=== PATIENT | female | born 1985 | race Caucasian/White ===

== ENCOUNTER 2022-04-24 09:29 | Outpatient (CLI) | payer MEDICAID, SELFPAY ==
--- OUTSIDE RECORDS SUMMARY | 2022-04-24 09:32 | XMS_ITS | Encounter Summary ---
:1985 Author Organization [place] Address [address] [place] [address] Care Team Providers Name Role Phone Andres North MD Primary Care Provider [phone] Encounter Details Date Type Department Care Team Description 03/28/2022 Travel Social History Tobacco Use Types Packs/Day Years Used Date Former Smoker Smokeless Tobacco: Never Used Alcohol Use Standard Drinks/Week Comments No 0 (1 standard drink = 0.6 oz pure alcoho l) Sex Assigned at Date Recorded Not on file COVID-19 Exposure Response Date Recorded In the last 10 days, have you been in contact with No / Unsu re 03/28/2022 11:30 AM CDT someone who was confirmed or suspected to have Coronavirus/COVID-19? documented as of this encounter Plan of Treatment Not on filedocumented as of this encounter Visit Diagnoses Not on filedocumented in this encounter Additional Health Concerns Infection Onset Date Last Indicated Resolved Time Rule Out COVID-19 03/28/2022 03/28/2022 03/28/2022 12: 54 PM CDT documented as of this encounter Care Teams Director Of Business Operations Relationship Specialty Start Date End Date Andres North MD PCP - General Family Practice 08/28/[address], [id number] [place] [address] documented as of this encounter
--- OUTSIDE RECORDS SUMMARY | 2022-04-24 09:32 | XMS_ITS | Encounter Summary ---
:1985 Author Organization [place] Address [address] [place] [address] Care Team Providers Name Role Phone Edwige Hernandez MD Primary Care Provider Encounter Details Date Type Department Care Team Description 04/12/2002 Lottie Arnett [facility] [address] [place] [address] Social History Tobacco Use Types Packs/Day Years Used Date Never Assessed Sex Assigned at Date Recorded Not on file documented as of this encounter Plan of Treatment Not on filedocumented as of this encounter Procedures Procedure Name Priority Date/Time Associated Diagnosis Comme nts ABSTRACT LABCARE REPORT Routine 04/13/2002 ABSTRACT PAP (HIM EXTERNAL RESULT) Routine 01/07/2002 documented in this encounter Results ABSTRACT LABCARE REPORT (04/13/2002) Narrative This result has an attachment that is no t available. [facility] ABSTRACT PAP-NO CHARGE (01/07/2002) [facility] - HIM EXTERNAL RESULT documented in this encounter Visit Diagnoses Not on filedocumented in this encounter Care Teams Comber Tender Relationship Specialty Start Date End Date Edwige Hernandez MD PCP - General 09/19/01 08/27/12 documented as of this encounter
--- OUTSIDE RECORDS SUMMARY | 2022-04-24 09:32 | XMS_ITS | Encounter Summary ---
:1985 Author Organization [place] Address [address] [place] [address] Care Team Providers Name Role Phone Edwige Hernandez MD Primary Care Provider Reason for Visit Reason Comments Physical Encounter Details Date Type Department Care Team Description 01/04/2003 Office Visit [facility] [place], ROUTINE ME DICAL EXAM [facility] [place] Toni Palomares MD (Primary Dx) [address] [address] [place], [place] [phone] (Wo rk) [address] [phone] Social History Tobacco Use Types Packs/Day Years Used Date Never Smoker Alcohol Use Standard Drinks/Week Comments No 0 (1 standard drink = 0.6 oz pure alcoho l) Sex Assigned at Date Recorded Not on file documented as of this encounter Last Filed Vital Signs Vital Sign Reading Time Taken Comments Blood Pressure 94/72 01/04/2003 4:00 PM CDT Pulse 64 01/04/2003 4:00 PM CDT Temperature - - Respiratory Rate 18 01/04/2003 4:00 PM CDT Oxygen Saturation - - Inhaled Oxygen Concentration - - Weight 59.9 kg (132 lb) 01/04/2003 4:00 PM CDT Height 168.9 cm (5' 6.5) 01/04/2003 4:00 PM CDT Body Mass Index 20.99 01/04/2003 4:00 PM CDT Body Mass Index Percentile 44.76 % 01/04/2003 4:00 PM CD T Growth Chart: CDC (Girls, 2-20 Years) documented in this encounter Progress Notes 01/04/2003 4:00 PM CDT pt is a 17 year old female who is seen here to day for physical,also requesting pap and pelvic. last pap was 1 yr ago,no abnormal pap in the past. pt also wants STD check. PAST MED HISTORY - Review of patient's past medical history indicates: ALLERGIC RHINITIS NOS PAST SURGICAL HISTORY-Review of patient's past surgical history indicates: NONSPECIFIC PROCEDURE Comment: ganglion cyst removal rt wrist. REMOVE TONSILS/A DENOIDS,11+ Y/O SOC HISTORY-Social History Marital Status: Single Spouse Name: Years of Education: Number of children: Social History Main Topics Tobacco Use: Never Alcohol Use: No Drug U se: No Sexually Active: Not Currently FAMILY HISTORY-Review of patient's family histo ry indicates: Diabetes Father Comment: type 2 Depressio n Mother Respiratory Brother Comment: asthma MEDS -none REVIEW OF SYSTEMS- GENERAL:negative HEENT-NEGATIVE CARDIO VASCULAR-n egative RESPITORY-negative ABDOMEN-negative GENITO URINARY-negative MUSCULOSKELETAL negative PSYCH ne gative RELOCATION SERVICES SPECIALIST:negative. PHYSICAL EXAMINATION- Blood pressure 94/72, pulse 64, resp. rate 18, height 5' 6.5 (1.689m), [id number] lbs (59.875 kg), last menstrual period 12/19/2002.. GENERAL:healthy, alert and no distress HEENT: pupils equal and reactive to light and accommodation, TMs clear, oropharynx cl ear CVS: regular rate and rhythm with normal S1, S2 ; no murmur, rub or gallops RESP: Normal - CTA w ithout rales, rhonchi, or wheezing. ABD: no organomegaly, bowel sounds normal, soft, non-tender BREAS T :Breasts are symmetric. No dominant, discrete, fixed or suspicious masses are noted. No skinor nipple changes or axillary nodes. Self exam is taught and encouraged.. : Vagina and vulva are andrzej l;scant white discharge is noted. Cervix normal. Adnexa normal in size without masses or tenderness. .pap obtained,no cervical motion tenderness. EXT:Foot and ankle exam is normal. Color and temperature of the feet is normal. Peripheral pulses are palpable.. RELOCATION SERVICES SPECIALIST:Cranial nerves 2-12 intact, motor streng th intact, reflexes normal ASSESSMENT & PLAN : V70.0 ROUTINE MEDICAL EXAM (primary encounter diag nosis) Plan: A THIN LAYER PAP SCREEN, A.M.A. LIPID PANEL, HGB, ALANINE AMINO (ALT) (SGPT), A.M .A. BASIC METABOLIC PANEL, HIV-1/HIV-2, SCREEN, RPR SCREEN W/REFLEX TO TITER, N.GONORRH OEAE, DNA, (GC), CHYLMD TRACH, DNA, AMP PROBE, A WET PREP pt wants to be informed about results RUEL when available,even before mailing as she is [facility]. documented in this encounter Nursing Notes 01/04/2003 4:00 PM CDT >> NEEMA SENA 01/04/2003 4:13 pm needs pap, denies uti or vaginal sx. Non-fasting. Neema Sena RN New to documented in this encounter Plan of Treatment Not on filedocumented as of this encounter Procedures Procedure Name Priority Date/Time Associated Comments Diagnosis HCL WET PREP Routine 01/04/2003 4:36 PM Routine Medical Result s for this CDT Exam procedure are i n the results section. CL AFF Routine 01/04/2003 4:34 PM Routine Medical Result s for this N.GONORRHOEAE, DNA CDT Exam procedure are in AMP PROBE the results section. CL AFF CHLMYD TRACH, Routine 01/04/2003 4:34 PM Routine Medica l Results for this DNA, AMP PROBE CDT Exam procedure are in the results section. HCL HEMOGLOBIN Routine 01/04/2003 4:33 PM Routine Medical Resu lts for this NONLAB CDT Exam procedure are i n the results section. HCL BASIC METABOLIC Routine 01/04/2003 4:33 PM Routine Medical Results for this PANEL CDT Exam procedure are i n the results section. HCL RPR SCREEN Routine 01/04/2003 4:33 PM Routine Medical Resu lts for this W/REFLEX TO TITER CDT Exam procedure are in the results section. HCL HIV 1 & 2 Routine 01/04/2003 4:33 PM Routine Medical Resul ts for this ANTIBODY CDT Exam procedure are i n the results section. HCL ALT Routine 01/04/2003 4:33 PM Routine Medical Result s for this CDT Exam procedure are i n the results section. CL AFF A.M.A. LIPID Routine 01/04/2003 4:33 PM Routine Medical Results for this PANEL CDT Exam procedure are i n the results section. HCL PAP THIN LAYER Routine 01/04/2003 12:00 AM Routine Medical Results for this SCREEN CDT Exam procedure are i n the results section. documented in this encounter Results A WET PREP (01/04/2003 4:36 PM CDT) [facility] Method [place] Signature Specimen Vagina [facility] LAB Wet Prep No yeast seen [place] No Trichomonas seen [place] No clue cells seen CLINIC LAB Report status FINAL [id number] [facility] Specimen Anatomical Collection Method Collection Time Receive d Time (Source) Location / / Volume Laterality 01/04/2003 4:36 PM 3 4:41 CDT PM CDT Toni Wagoner MD LABORATORY Performing Organization Address City/[facility]/ZIP Code Phon e Number [facility] [address] [place], [place] [address] [address] [facility] CHYLMD TRACH, DNA, AMP PROBE (01/04/2003 4:34 PM CDT) Component Value Ref Test Analysis Performed At [facility] Method [place] Signature Specimen Vagina [facility] LABS Chlamydia Negative for C. trachomatis rRNA by hvac maintenance technician mediated amplification. [facility] Trachomatis A negative result by transc ription mediated amplification does not preclude the [place] PCR presence of C. trachomatis infection because results are dependent on proper CAMPUS LABS and adequate collection, absence of inhibitors, and suffici ent rRNA to be detected. Specimen Anatomical Collection Method Collection Time Receive d Time (Source) Location / / Volume Laterality 01/04/2003 4:34 PM 3 4:39 CDT PM CDT Toni Wagoner MD LABORATORY Performing Organization Address City/State/ZIP Code Phon e Number [address] [address] [facility] LABS N.GONORRHOEAE, DNA, (GC) (01/04/2003 4:34 PM CDT) Component Value Ref Test Analysis Performed At [facility] Method Time Signature Specimen Vagina [facility] LABS N Gonorrhea Negative for N. gonorrhoeae rRNA by hvac maintenance technician mediated amplification. [facility] PCR A negative result by transc ription mediated amplification does not preclude the [place] presence of N. gonorrhoeae infection because re sults are dependent on proper CAMPUS LABS and adequate collection, absence of inhibitors, and suffici ent rRNA to be detected. Specimen Anatomical Collection Method Collection Time Receive d Time (Source) Location / / Volume Laterality 01/04/2003 4:34 PM 3 4:39 CDT PM CDT Toni Wagoner MD LABORATORY Performing Organization Address City/[facility]/ZIP Code Phon e Number [address] LABS RPR SCREEN W/REFLEX TO TITER (01/04/2003 4:33 PM CDT) Analysis Performed At Patho logist Time Signature Rapid Plasma Negative NEG [facility] Reagin [facility] LABS Specimen Anatomical Collection Method Collection Time Receive d Time (Source) Location / / Volume Laterality 01/04/2003 4:33 PM 3 4:38 CDT PM CDT Toni Wagoner MD LABORATORY Performing Organization Address City/[facility]/ZIP Code Phon e Number [address] LABS HIV-1/HIV-2, SCREEN (01/04/2003 4:33 PM CDT) Analysis Performed At Patho logist Time Signature HIV 1&2 Negative NEG [facility] Antibody [facility] LABS Specimen Anatomical Collection Method Collection Time Receive d Time (Source) Location / / Volume Laterality 01/04/2003 4:33 PM 3 4:38 CDT PM CDT Toni Wagoner MD LABORATORY Performing Organization Address City/[facility]/ZIP Code Phon e Number [address] LABS A.M.A. BASIC METABOLIC PANEL (01/04/2003 4:33 PM CDT) P athologist Signature Sodium 142 133 - 144 [facility] mmol/L [facility] Potassium 4.2 3.4 - 5.3 [facility] mmol/L [facility] Chloride 104 96 - 110 [facility] mmol/L [facility] Carbon Dioxide 27 20 - 32 [facility] mmol/L [facility] Anion Gap 12 6 - 17 [facility] mmol/L [facility] Glucose 87 60 - 115 [facility] mg/dL [facility] LAB Urea Nitrogen 10 5 - 24 [place] mg/dL [facility] Creatinine 0.9 0.6 - 1.2 [place] mg/dL [facility] Calcium 10.0 8.7 - 10.8 [place] mg/dL [facility] Specimen Anatomical Collection Method Collection Time Receive d Time (Source) Location / / Volume Laterality 01/04/2003 4:33 PM 3 4:38 CDT PM CDT Toni Wagoner MD LABORATORY Performing Organization Address City/State/ZIP Code Phon e Number [facility] [address] [place] [address] [facility] ALANINE AMINO (ALT) (SGPT) (01/04/2003 4:33 PM CDT) P athologist Signature ALT 19 0 - 35 U/L [facility] Specimen Anatomical Collection Method Collection Time Receive d Time (Source) Location / / Volume Laterality 01/04/2003 4:33 PM 3 4:38 CDT PM CDT Toni Wagoner MD LABORATORY Performing Organization Address City/[facility]/ZIP Code Phon e Number [facility] [address], [place] [address] [facility] HGB (01/04/2003 4:33 PM CDT) P athologist Signature Hemoglobin 14.9 11.7 - 15.7 [facility] g/dL [facility] LAB Specimen Anatomical Collection Method Collection Time Receive d Time (Source) Location / / Volume Laterality 01/04/2003 4:33 PM 3 4:38 CDT PM CDT Toni Wagoner MD LABORATORY Performing Organization Address City/State/ZIP Code Phon e Number [facility] [address] [place], [place] [address] [address] [facility] A.M.A. LIPID PANEL (01/04/2003 4:33 PM CDT) P athologist Signature Cholesterol 177 <200 mg/dL [facility] Comment: Cholesterol Reference Range: <200 ??The NCEP recommends further ? evaluation of: ? 1. ??Patients with cholesterol ? greater than 200 mg/dL ? if additional risk facto rs ? are present. ? 2. ??All patients with a ? cholesterol greater than ? 240 mg/dL. Triglycerides 86 <150 mg/dL [facility] HDL Cholesterol 49 >40 mg/dL [facility] LDL Cholesterol Calculated 110 <130 mg/dL [facility] VLDL-Cholesterol 17 0 - 30 mg/dL [facility] Cholesterol/HDL Ratio 4 0 - 5 [facility] Specimen Anatomical Collection Method Collection Time Receive d Time (Source) Location / / Volume Laterality 01/04/2003 4:33 PM 3 4:38 CDT PM CDT Toni Wagoner MD LABORATORY Performing Organization Address City/State/ZIP Code Phon e Number [facility] [address] [place] [address] [facility] A THIN LAYER PAP SCREEN (01/04/2003 12:00 AM CDT) Component Value Ref Test Analysis Performed At Patholo gist Range Method Time Signature Copath Report Patient Name: VINCENZO AGUILA MR#: [id number] Specimen #: [id number] Collected: 01/04/03 Received: 01/10/03 Reported: 01/13/03 14:59 Ordering Phy(s): ISABEL WAGONER SPECIMEN/STAIN PROCESS: Pap thin layer prep screening ? Pap-Cyto x 1, Reflex HPV x 1 SOURCE: Cervical, endocervical ---- Pap thin layer prep screening SPECIMEN ADEQUACY: Satisfactory for evaluation. -Transitional zone component present. CYTOLOGIC INTERPRETATION: Negative for Intraepithelial Lesion or Malignancy Electronically signed out by: ELIDA Gaston (ASCP) Processed and screened at [facility] CLINICAL HISTORY: LMP: 12/19/02 Specimen (Source) Anatomical Collection Method Collection Time Re ceived Time Location / / Volume Laterality 01/04/2003 01/10/2003 2:57 PM CDT Toni Wagoner MD LABORATORY Performing Organization Address City/State/ZIP Code Phon e Number [place] documented in this encounter Visit Diagnoses Diagnosis Routine general medical examination at a health care facility - Primary documented in this encounter Care Teams Chief Quality Officer Relationship Specialty Start Date End Date Edwige Hernandez MD PCP - General 09/19/01 08/27/12 documented as of this encounter
--- OUTSIDE RECORDS SUMMARY | 2022-04-24 09:32 | XMS_ITS | Encounter Summary ---
:1985 Author Organization [place] Address [address] [place] [address] Care Team Providers Name Role Phone Edwige Hernandez MD Primary Care Provider Reason for Visit Reason Comments Urgent Care Urinary Problem for 24 hours urinary pain, b urning, urgency, low back pain, pt took AZO this morning Encounter Details Date Type Department Care Team Description 03/15/2011 Office Visit [facility] Christopher Paredes UTI (urina ry tract Urgent Care [place] Cye, DO infection) (Primary Dx) [address] [address] [phone] Social History Tobacco Use Types Packs/Day Years Used Date Former Smoker Smokeless Tobacco: Never Used Alcohol Use Standard Drinks/Week Comments No 0 (1 standard drink = 0.6 oz pure alcoho l) Sex Assigned at Date Recorded Not on file documented as of this encounter Last Filed Vital Signs Vital Sign Reading Time Taken Comments Blood Pressure 110/68 03/15/2011 3:35 PM CDT Pulse - - Temperature 36.9 ??C (98.5 ??F) 03/15/2011 3:35 PM CDT Respiratory Rate 16 03/15/2011 3:35 PM CDT Oxygen Saturation - - Inhaled Oxygen Concentration - - Weight 69.4 kg (153 lb) 03/15/2011 3:35 PM CDT Height - - Body Mass Index 24.88 01/16/2006 3:00 PM CDT documented in this encounter Progress Notes Christopher Paredes - 03/15/2011 4:56 PM CDT SUBJECTIVE: Jacque Sierra is a 25 year old female who presents today for a possible UTI. Symptoms of dysuria and frequency have been going on for 2day(s). Hematuria no. still presentand moderate. There is no history of fever, chills, nausea or vomiting. This patient does have a history of urinary tract infections. Patient denies long duration and flank pain Past Medical History Diagnosis Date ??? Allergic rhinitis, cause unspecified Allergies Allergen Reactions ??? Penicillins ??? Quinolones Levaquin - hives ??? Sulfa Drugs GI Disturbance ??? Bactrim History Substance Use Topics ??? Smoking status: Former Smoker ??? Smokeless tobacco: Never Used ??? Alcohol Use: No ROS: CONSTITUTIONAL:NEGATIVE for fever, chills, change in weight OBJECTIVE: BP 110/68 Temp(Src) 98.5 ??F (36.9 ??C) (Oral) Resp 16 Wt 153 lb (69.4 kg) LMP 03/01/2011 No Flank/abd pain 1. UTI (urinary tract infection) (599.0C) URINE CULTURE, cephALEXin (KEFLEX) 500 MG capsule, fluconazole (DIFLUCAN) 150 MG tablet Drink plenty of fluids. Prevention and treatment of UTI's discussed.Signs and symptoms of pyelonephritis mentioned. Follow up with primary care physician if not improving' documented in this encounter Nursing Notes 03/15/2011 3:00 PM CDT >> ANNE-MARIE DENNY Fri Mar 15, 2011 3:37 PM Patient presents with: Urgent Care Urinary Problem - for 24 hours urinary pain, burning, urgency, low back pain, pt took AZO this morning initial BP 110/68 Temp(Src) 98.5 ??F (36.9 ??C) (Oral) Resp 16 Wt 153 lb (69.4 kg) LMP 03/01/2011 Estimated Body mass index is 24.88 kg/(m^2) as calculated from the following: Height as of 06: 5' 5.75(1.67 m). Weight as of this encounter: 153 lb(69.4 kg).. bp completed using cuff size regular Anne-Marie Denny MA documented in this encounter Plan of Treatment Not on filedocumented as of this encounter Procedures Procedure Name Priority Date/Time Associated Comments Diagnosis URINE CULTURE Routine 03/15/2011 4:05 PM UTI (urinary tract Re sults for this CDT infection) procedure are i n the results section. URINE MICROSCOPIC Routine 03/15/2011 4:04 PM Resu lts for this EXAM CDT procedure are i n the results section. documented in this encounter Results URINE CULTURE (03/15/2011 4:05 PM CDT) [facility] Method Time Signature Specimen Midstream Urine [facility] Description [facility] Culture Micro >100,000 [facility] colonies/mL [facility] LAB coli Micro Report FINAL [facility] Status 03/16/2011 [facility] Specimen Anatomical Collection Method Collection Time Receive d Time (Source) Location / / Volume Laterality 03/15/2011 4:05 PM 1 4:10 CDT PM CDT Organism Antibiotic Method Susceptibility >100,000 colonies/ml Ampicillin <=2 Suscept ible ug/mL escherichia coli (yanick) >100,000 colonies/ml Cefazolin <=4 Suscept ible ug/mL escherichia coli (yanick) >100,000 colonies/ml Cefoxitin <=4 Suscept ible ug/mL escherichia coli (yanick) >100,000 colonies/ml Ceftriaxone <=1 Suscept ible ug/mL escherichia coli (yanick) >100,000 colonies/ml Ciprofloxacin <=0.25 Susc eptible ug/mL escherichia coli (yanick) >100,000 colonies/ml Gentamicin <=1 Suscept ible ug/mL escherichia coli (yanick) >100,000 colonies/ml Levofloxacin <=0.12 Susc eptible ug/mL escherichia coli (yanick) >100,000 colonies/ml Nitrofurantoin <=16 Suscep tible ug/mL escherichia coli (yanick) >100,000 colonies/ml Tobramycin <=1 Suscept ible ug/mL escherichia coli (yanick) >100,000 colonies/ml Trimethoprim/Sulfamethoxazol <=1/19 Susceptible ug/mL escherichia coli (yanick) e >100,000 colonies/ml Ampicillin/Sulbactam <=2 [place] sceptible ug/mL escherichia coli (yanick) Christopher Paredes DO LAB - MICRO GENERAL ORDERABL ES Performing Organization Address City/[facility]/ZIP Code Phon e Number [facility] [address] [address] [facility] LAB (ABNORMAL) Microscopic exam urine (03/15/2011 4:04 PM CDT) P athologist Signature WBC Urine 5-10 (A) 0 - 2 /HPF [facility] RBC Urine O - 2 0 - 2 /HPF [facility] Specimen Anatomical Collection Method Collection Time Receive d Time (Source) Location / / Volume Laterality 03/15/2011 4:04 PM 1 4:09 CDT PM CDT Christopher Harmon Reggie REGAN LAB - URINE ORDERABLES Performing Organization Address [facility]/ZIP Code Phon e Number [facility] [address] [place] [address] [facility] documented in this encounter Visit Diagnoses Diagnosis UTI (urinary tract infection) - Primary Urinary tract infection, site not specif ied documented in this encounter Care Teams Ice Guard Inspector Relationship Specialty Start Date End Date Edwige Hernandez MD PCP - General 09/19/01 08/27/12 documented as of this encounter
--- OUTSIDE RECORDS SUMMARY | 2022-04-24 09:32 | XMS_ITS | Encounter Summary ---
:1985 Author Organization [facility] Address [address] [place] [id number] Care Team Providers Name Role Phone Edwige Hernandez MD Primary Care Provider Reason for Visit Reason Comments Pharyngitis UTI Encounter Details Date Type Department Care Team Description 02/23/2003 Office Visit [facility] Haleigh Najera RY FREQUENCY (Primary Dx); [facility] [place] MD Paula SORE THROAT [place] [address] [place] [phone] [id number] Social History Tobacco Use Types Packs/Day Years Used Date Never Smoker Alcohol Use Standard Drinks/Week Comments No 0 (1 standard drink = 0.6 oz pure alcoho l) Sex Assigned at Date Recorded Not on file documented as of this encounter Last Filed Vital Signs Vital Sign Reading Time Taken Comments Blood Pressure - - Pulse - - Temperature 36.4 ??C (97.6 ??F) 02/23/2003 3:45 PM CDT Respiratory Rate - - Oxygen Saturation - - Inhaled Oxygen Concentration - - Weight 61.7 kg (136 lb) 02/23/2003 3:45 PM CDT Height - - Body Mass Index 21.62 01/04/2003 4:00 PM CDT Body Mass Index Percentile 52.34 % 02/23/2003 3:45 PM CD T Growth Chart: CDC (Girls, 2-20 Years) documented in this encounter Progress Notes 02/23/2003 3:45 PM CDT DUNIA Santillan is a 17 year old female who presents with symptoms as discribed. There is no f ever, no known exposure, and no history of UTI. Alert, well-hydrated, in no apparent distress. HEENT : Sclera clear, no lid edema or erythema. TM's clear, with normal landmarks, and light reflection. Nasal mucosa normal, no discharge. Mouth free of erythema or lesions. Tonsils normal in size andslig htly erythematous. No facial tenderness or edema. Neck: Supple, no adenopathy. Lungs: Clear to ausc ultation. Abdomen: Soft, non-tender, no masses or organomegaly. Normal bowel sounds. Skin: pink an d slightly edematous about 1 cm area of distal finger near the nail. No fluctuance. : Vaginal openi ng and vulva are normal; no discharge is noted. Assessment: Dysuria Pharyngitis PLAN: Given neg ative labs advised symptomatic treatment. Push fluids. RTC if symptoms not improved in 1 week, sooner if symptoms worsen. documented in this encounter Nursing Notes 02/23/2003 3:45 PM CDT >> ERWIN CROSS 02/23/2003 4:27 pm negative strep.Kimberlyn Vale RN >> ELZBIETA URIAS 02/23/2003 3:57 pm Patient here with very sore throat, swollen right index finger, no known injury, and also has burning sensation after urination all for the last two-three days. Elzbieta Urias ROUSTABOUT HAND documented in this encounter Plan of Treatment Not on filedocumented as of this encounter Procedures Procedure Name Priority Date/Time Associated Diagnosis Comme nts HCL BETA STREP Routine 02/23/2003 4:58 PM SORE THROAT Results for this CONFIRM CDT procedure are i n the results section. HCL STREP GROUP A Routine 02/23/2003 4:58 PM SORE THROAT Resu lts for this AG (RAPID) CDT procedure are i n the results section. HCL WET PREP Routine 02/23/2003 4:58 PM Urinary Frequency Resu lts for this CDT procedure are i n the results section. HCL UA MICRO IF Routine 02/23/2003 4:00 PM Urinary Frequency R esults for this POSITIVE CDT procedure are i n the results section. CL AFF MICRO Routine 02/23/2003 4:00 PM Urinary Frequency Resu lts for this EXAM-URINE CDT procedure are i n the results section. documented in this encounter Results BETA STREP CONFIRM (02/23/2003 4:58 PM CDT) Component Value Ref Test Analysis Performed At [facility] gist Range Method Time Signature Specimen Throat [facility] Culture Micro No Beta [place] Streptococcus [place] isolated CLINIC LAB Report status [facility] Specimen Anatomical Collection Method Collection Time Receive d Time (Source) Location / / Volume Laterality 02/23/2003 4:58 PM 3 5:03 CDT PM CDT Haleigh Najera MD LABORATORY Performing Organization Address City/State/ZIP Code Phon e Number [facility] [address] [place] [address] [facility] A WET PREP (02/23/2003 4:58 PM CDT) [facility] Method Time Signature Specimen Vagina [facility] Wet Prep Clue cells seen [place] No yeast seen [facility] No Trichomonas seen CLINIC LAB Report status [facility] Specimen Anatomical Collection Method Collection Time Receive d Time (Source) Location / / Volume Laterality 02/23/2003 4:58 PM 3 5:03 CDT PM CDT Haleigh Najera MD LABORATORY Performing Organization Address City/[facility]/ZIP Code Phon e Number [facility] [address], [place] [address] [facility] STREP GROUP A AG (RAPID) (02/23/2003 4:58 PM CDT) Component Value Ref Test Analysis Performed At [facility] Range Method Time Signature Specimen Throat [facility] Rapid Strep A NEGATIVE: No Group A strepto coccal antigen detected by immunoassay, await [place] Screen culture report. [facility] Report status [facility] Specimen Anatomical Collection Method Collection Time Receive d Time (Source) Location / / Volume Laterality 02/23/2003 4:58 PM 3 5:03 CDT PM CDT Haleigh Najera MD LABORATORY Performing Organization Address City/State/ZIP Code Phon e Number [facility] [address] [place] [address] [facility] (ABNORMAL) MICRO EXAM-URINE (02/23/2003 4:00 PM CDT) P athologist Signature WBC Urine 0-2 0 - 2 /HPF [facility] RBC Urine 0-2 0 - 2 /HPF [facility] Amorphous Few (A) NEG /HPF [place] Phosphates [facility] Specimen Anatomical Collection Method Collection Time Receive d Time (Source) Location / / Volume Laterality 02/23/2003 4:00 PM 3 4:05 CDT PM CDT Haleigh Najera MD LABORATORY Performing Organization Address City/State/[facility] Code Phon e Number [facility] [address] [place] [phone] [facility] (ABNORMAL) UA MICRO IF POSITIVE (02/23/2003 4:00 PM CDT) Patholo gist Method Time Signature Color Urine Yellow [facility] Appearance Urine Clear [facility] Glucose Urine Negative NEG mg/dL [facility] Bilirubin Urine Negative NEG [facility] Ketones Urine Negative NEG mg/dL [facility] Specific [place] 1.015 1.001 - [place] Urine 1.035 [facility] Blood Urine Trace (A) NEG [facility] pH Urine 7.5 (H) 5.0 - 7.0 [place] pH [facility] Protein Albumin Negative NEG mg/dL [place] Urine [facility] Urobilinogen 0.2 0.2 - 1.0 [place] Urine EU/dL [facility] Nitrite Urine Negative NEG [facility] Leukocyte Trace (A) NEG [place] Esterase Urine [facility] Source Midstream [place] Urine [facility] Specimen Anatomical Collection Method Collection Time Receive d Time (Source) Location / / Volume Laterality 02/23/2003 4:00 PM 3 4:05 CDT PM CDT Haleigh Najera MD LABORATORY Performing Organization Address City/State/ZIP Code Phon e Number [facility] [address] [place] [address] [facility] documented in this encounter Visit Diagnoses Diagnosis Urinary frequency - Primary SORE THROAT Streptococcal sore throat documented in this encounter Care Teams Antique Repairer Relationship Specialty Start Date End Date Edwige Hernandez MD PCP - General 09/19/01 08/27/12 documented as of this encounter
--- OUTSIDE RECORDS SUMMARY | 2022-04-24 09:32 | XMS_ITS | Encounter Summary ---
:1985 Author Organization [facility] Address [facility] [address] Care Team Providers Name Role Phone Edwige Hernandez MD Primary Care Provider Reason for Visit Reason Onset Date Comments Erroneous encounter-disregard 04/08/2006 Encounter Details Date Type Department Care Team Description 04/08/2006 Telephone [facility] Edwige Hernanedz [facility] encounter-disregard [address] [facility] [address] [place], [place] [address] [facility] [phone] [facility] [address] [place], [place] [id number] Social History Tobacco Use Types Packs/Day Years Used Date Never Smoker Alcohol Use Standard Drinks/Week Comments No 0 (1 standard drink = 0.6 oz pure alcoho l) Sex Assigned at Date Recorded Not on file documented as of this encounter Plan of Treatment Not on filedocumented as of this encounter Visit Diagnoses Not on filedocumented in this encounter Care Teams Buggy Runner Relationship Specialty Start Date End Date Edwige Hernandez MD PCP - General 09/19/01 08/27/12 documented as of this encounter
--- OUTSIDE RECORDS SUMMARY | 2022-04-24 09:32 | XMS_ITS | Encounter Summary ---
:1985 Author Organization [facility] Address [address] [facility] [place] [address] Care Team Providers Name Role Phone Edwige Hernandez MD Primary Care Provider Reason for Visit Reason Onset Date Comments Medication Request 07/07/2006 muscle relaxer Encounter Details Date Type Department Care Team Description 07/07/2006 Telephone [facility] [place] dication Request Urgent Care Dino FOX (muscle relaxer) [address] SERVICE [phone] [facility] [facility] [phone] [address] [place], [place] [address] (Wo rk) Social History Tobacco Use Types Packs/Day Years Used Date Never Smoker Alcohol Use Standard Drinks/Week Comments No 0 (1 standard drink = 0.6 oz pure alcoho l) Sex Assigned at Date Recorded Not on file documented as of this encounter Miscellaneous Notes Telephone Encounter - Yesy Markham - 07/07/2006 8:02 PM CST Pt stopped into clinic to request the muscle relaxeprescription that Dr Alvarado said said she could have if she developed muscle spasms. Says her right neck, rt back, rt arm and rt leg are all stiff. Ok per Meliza Reed to call in for # [address] Alvarado didn't say how many to call in for her. I called in Flexeril 10 mg 1 po tid as needed # 21 tabs with no refills. Also advised pt to follow upwith her PCP. Lior Markham LPN [employer] SALES ASSISTANT documented in this encounter Plan of Treatment Not on filedocumented as of this encounter Visit Diagnoses Not on filedocumented in this encounter Care Teams Dairy Processing Supervisor Relationship Specialty Start Date End Date Edwige Hernandez MD PCP - General 09/19/01 08/27/12 documented as of this encounter
--- OUTSIDE RECORDS SUMMARY | 2022-04-24 09:32 | XMS_ITS | Encounter Summary ---
:1985 Author Organization [facility] Address [address] [place] [id number] Care Team Providers Name Role Phone Andres North MD Primary Care Provider [phone] Reason for Visit Reason Comments Shortness of Breath Encounter Details Date Type Department Care Team Description [facility] with [facility] Emergency Dep t [facility] exacerbation, [address] [place] unspecified whether [place] [id number] persistent [id number] [place], [place] [phone] (Wo rk) Social History Tobacco Use Types [...] have Coronavirus/COVID-19? documented as of this encounter Last Filed Vital Signs Vital Sign Reading Time Taken Comments Blood Pressure 164/101 03/28/2022 4:30 PM CDT Pulse 105 03/28/2022 4:30 PM CDT Temperature 36.4 ??C (97.6 ??F) 03/28/2022 4:26 PM CDT Respiratory Rate 26 03/28/2022 11:32 AM CDT Oxygen Saturation 92% 03/28/2022 4:45 PM CDT Inhaled Oxygen Concentration - - Weight - - Height - - Body Mass Index - - documented in this encounter Discharge Instructions Discharge Mercedes Garcia, MD - 03/28/2022 4:42 PM CDT *You may resume diet and activities as tolerated. *Take medications as prescribed. Prednisone as prescribed previously and duoneb or your inhaler as directed. Continue your current medications *Follow-up with your primary doctor in the next 1-2 days for a recheck. *Return if you develop difficulty in breathing, require your inhaler/nebulizer more frequently than every four hours, faint or feel like you will faint or become worse in any way. Discharge Instructions Asthma Asthma is a condition causing narrowing and inflammation of the airways that can make it hard to breathe. Asthma can also cause cough, wheezing, noisy breathing and tightness in the chest. Asthma can be brought on or ???triggered?? by many things, including dust, mold, pollen, cigarette smoke, exercise, stress and infections, like the common cold. Return to the Emergency Department if: Your breathing gets worse. You need to use your inhaler more often than every 4 hours, or can???t get relief from your inhaler. You are very weak, or feel much more ill. You develop new symptoms, such as chest pain. You cough up blood. You are vomiting enough that you can???t keep fluids or your medicine down. What can I do to help myself? Fill any prescriptions the doctor gave you and take them right away--especially antibiotics. Be sureto finish the whole antibiotic prescription. You may be given a prescription for an inhaler, which can help loosen tight air passages. Use this as needed, but not more often than directed. Inhalers work much better when used with a spacer. You may be given a prescription for a steroid to reduce inflammation. Used long- term, these can havemany serious side effects, but for short courses these do not happen. You may notice restlessness orincreased appetite. You may use non-prescription cough or cold medicines. Cough medicines may help, but don???t make thecough go away completely. Avoid smoke, because this can make your symptoms worse. If you smoke, this may be a good time to quit! Consider using nicotine lozenges, gum, or patches to reduce cravings. If you have a fever, Tylenol?? (acetaminophen), Motrin?? (ibuprofen), or Advil?? (ibuprofen), may help bring fever down and may help you feel more comfortable. Be sure to read and follow the package directions, and ask your doctor if you have questions. Be sure to get your flu shot each year. The pneumonia shot can help prevent pneumonia. It is important that you follow up with your regular doctor, to be sure that you are improving from this spell (an acute asthma exacerbation), and also to do what you can to keep from having trouble again. Sometimes you need long-term medicines to keep your asthma under control. If you were given a prescription for medicine here today, be sure to read all of the information (including the package insert) that comes with your prescription. This will include important information about the medicine, its side effects, and any warnings that you need to know about. The pharmacist who fills the prescription can provide more information and answer questions you may have about the medicine. If you have questions or concerns that the pharmacist cannot address, please call or return to the Emergency Department. Opioid Medication Information Pain medications are among the most commonly prescribed medicines, so we are including this information for all our patients. If you did not receive pain medication or get a prescription for pain medicine, you can ignore it. You may have been given a prescription for an opioid (narcotic) pain medicine and/or have received apain medicine while here in the Emergency Department. These medicines can make you drowsy or impaired. You must not drive, operate dangerous equipment, or engage in any other dangerous activities whiletaking these medications. If you drive while taking these medications, you could be arrested for DUI, or driving under the influence. Do not drink any alcohol while you are taking these medications. Opioid pain medications can cause addiction. If you have a history of chemical dependency of any type, you are at a higher risk of becoming addicted to pain medications. Only take these prescribed medications to treat your pain when all other options have been tried. Take it for as short a time and asfew doses as possible. Store your pain pills in a secure place, as they are frequently stolen and provide a dangerous opportunity for children or visitors in your house to start abusing these powerful medications. We will not replace any lost or stolen medicine. As soon as your pain is better, you should flush all your remaining medication. Many prescription pain medications contain Tylenol?? (acetaminophen), including Vicodin??, Tylenol #3??, [place]??, Lortab??, and Percocet??. You should not take any extra pills of Tylenol?? if you are using these prescription medications or you can get very sick. Do not ever take more than 3000 mg of acetaminophen in any 24 hour period. All opioids tend to cause constipation. Drink plenty of water and eat foods that have a lot of fiber, such as fruits, vegetables, prune juice, apple juice and high fiber cereal. Take a laxative if you don???t move your bowels at least every other day. Miralax??, Milk of Magnesia, Colace??, or Senna?? can be used to keep you regular. Remember that you can always come back to the Emergency Department if you are not able to see your regular doctor in the amount of time listed above, if you get any new symptoms, or if there is anything that worries you. documented in this encounter Medications at Time of Discharge Medication Sig Dispensed Refills Start Date End Date ipratropium - albuterol Take 1 vial (3 mLs) by 90 mL 0 03/28/2022 0.5 mg/2.5 mg/3 mL nebulization every 6 (DUONEB) 0.5-2.5 (3) hours as needed for MG/3ML neb solution shortness of breath / dyspnea or wheezing documented as of this encounter ED Notes aLkia Sparks RN - 03/28/2022 5:01 PM CDT AVS reviewed. Deena Rose - 03/28/2022 4:28 PM CDT Patient ambulated to the rest room and when returned was notably short of breath. Harpal Hewitt RN - 03/28/2022 12:48 PM CDT Pt up to restroom, ambulated on own, felt light headed. Worsening SOB with ambulation. Harpal Hewitt RN - 03/28/2022 12:38 PM CDT Pt still feels bad after neb and medications. made aware. Amber Lucia RN - 03/28/2022 11:35 AM CDT Bed: ED02 Expected date: Expected time: Means of arrival: Comments: Triage Amber Lucia RN - 03/28/2022 11:33 AM CDT Pt presents to ED with severe SOB. States she has used 4 nebulizer in the last 4 hours and received one 1 UC prior to coming to ED. Pt having difficulty completing sentences due to SOB. Also had 2 nearsyncopal episodes. Mercedes Foster MD - 03/28/2022 11:30 AM CDT History Chief Complaint: Shortness of Breath The history is provided by the patient. Jacque Sierra is a 36 year old female with history of exercise-induced asthma who presents with shortness of breath. She first developed a cough 2 days ago, and had episode of vomiting yesterday. Then last night, she became short of breast last. She tried using a nebulizer 4 times throughout the night with no relief. She went to urgent car this morning where she received another nebulizer andwas prescribed a steroid. She took the first dose of the steroid which was 5 mg per the package. Hershortness of breath feels improved at bedside. Recent sick contacts include her son who has an ear infection. She was tested for Covid-19 yesterday and it came back negative. She does not have a history of blood clots or cancer. She denies recent travels, surgeries, or use of oral contraceptives. She has never been hospitalized for her asthma. She recently quit smoking 2 weeks ago. She denies diarrhea or fever. Review of Systems Constitutional: Negative for fever. Respiratory: Positive for cough and shortness of breath. Gastrointestinal: Positive for vomiting. Negative for diarrhea. Allergies: Bactrim Penicillins Quinolones Sulfa Drugs Medications: Prednisone Past Medical History: Exercise induced asthma HSV infection Chronic UTI Past Surgical History: Tonsillectomy/adenoidectomy Tympanostomy R wrist ganglion cyst removal Family History: Father - Type 2 DM Mother - depression Brother - asthma Mother - asthma Social History: The patient presents to the ED alone via private vehicle PCP: Andres North Hx of alcohol use and tobacco use (former smoker) Physical Exam Patient Vitals for the past 24 hrs: BP Temp Temp src Pulse Resp SpO2 03/28/22 1645 -- -- -- -- -- 92 % 03/28/22 1630 (!) 164/101 -- -- 105 -- 95 % 03/28/22 1626 -- 97.6 ??F (36.4 ??C) Oral -- -- -- 03/28/22 1618 (!) 163/112 -- -- 113 -- 95 % 03/28/22 1445 -- -- -- -- -- 93 % 03/28/22 1430 -- -- -- -- -- 95 % 03/28/22 1415 (!) 164/103 -- -- 107 -- 95 % 03/28/22 1400 -- -- -- -- -- 96 % 03/28/22 1345 (!) 151/95 -- -- 106 -- 95 % 03/28/22 1330 (!) 147/105 -- -- 104 -- 94 % 03/28/22 1215 -- -- -- -- -- 94 % 03/28/22 1145 (!) 184/110 -- -- -- -- 95 % 03/28/22 1132 (!) 179/114 -- -- (!) 126 26 93 % Physical Exam General: Well-nourished, very short of breath, speaking in 2-3 word sentences eyes: PERRL, conjunctivae pink no scleral icterus or conjunctival injection ENT: Moist mucus membranes, posterior oropharynx clear without erythema or exudates Respiratory: Diffuse wheezing with prolonged and expiratory phase and diminished air movement.+ Retractions. CV: Tachycardic rate and regular rhythm, no murmurs/rubs/gallops GI: Abdomen soft and non-distended. Normoactive BS. No tenderness, guarding or rebound Skin: Warm, dry. No rashes or petechiae Musculoskeletal: No peripheral edema or calf tenderness Neuro: Alert and oriented to person/place/time Psychiatric: Normal affect Emergency Department Course ECG: ECG taken at 1138, ECG read at 1142 Sinus tachycardia Nonspecific T wave abnormality Abnormal ECG Rate 1116 bpm. MS interval 118 ms. QRS duration 80 ms. QT/QTc 330/458 ms. P-R-T axes 85 52 1. Imaging: Chest XR, PA & LAT Final Result IMPRESSION: No infiltrate, pleural effusion or pneumothorax. The cardiac and mediastinal silhouettes are normal. MATI QUIÑONEZ MD Report per radiology Laboratory: Labs Ordered and Resulted from Time of ED Arrival to Time of ED Departure BASIC METABOLIC PANEL - Abnormal Result Value Creatinine 0.74 Sodium 139 Potassium 4.3 Urea Nitrogen 4.9 (*) Chloride 103 Carbon Dioxide (CO2) 24 Anion Gap 12 Glucose 201 (*) GFR Estimate >90 Calcium 9.6 BLOOD GAS VENOUS WITH OXYHEMOGLOBIN - Abnormal pH Venous 7.40 pCO2 Venous 43 pO2 Venous 44 Bicarbonate Venous 27 FIO2 0 Oxyhemoglobin Venous 78 (*) Base Excess/Deficit (+/-) 1.4 CBC WITH PLATELETS AND DIFFERENTIAL - Abnormal WBC Count 5.2 RBC Count 4.16 Hemoglobin 13.3 Hematocrit 41.3 MCV 99 MCH 32.0 MCHC 32.2 RDW 12.6 Platelet Count 216 % Neutrophils 74 % Lymphocytes 13 % Monocytes 6 % Eosinophils 7 % Basophils 0 % Immature Granulocytes 0 NRBCs per 100 WBC 0 Absolute Neutrophils 3.8 Absolute Lymphocytes 0.7 (*) Absolute Monocytes 0.3 Absolute Eosinophils 0.4 Absolute Basophils 0.0 Absolute Immature Granulocytes 0.0 Absolute NRBCs 0.0 D DIMER QUANTITATIVE - Normal D-Dimer Quantitative 0.35 TROPONIN T, HIGH SENSITIVITY - Normal Troponin T, High Sensitivity <6 NT PROBNP INPATIENT - Normal N terminal Pro BNP Inpatient 130 HCG QUALITATIVE - Normal hCG Serum Qualitative Negative INFLUENZA A/B & SARS-COV2 PCR MULTIPLEX - Normal Influenza A PCR Negative Influenza B PCR Negative RSV PCR Negative SARS CoV2 PCR Negative Emergency Department Course: Reviewed: I reviewed nursing notes, vitals and past medical history Assessments: 1252 I obtained history and examined the patient as noted above. 1241 I rechecked the patient and updated. 1635 I rechecked the patient and explained findings. I discussed plan for discharge home. Interventions: 1155 Duoneb 3 ml INH 1156 NS 500 ml IV 1156 Solu-medrol 125 mg IV 1158 Magnesium sulfate 2 g IV Disposition: The patient was discharged to home. Impression & Plan Medical Decision Making: Jacque Sierra is a 36 year old female with a history of mild asthma who comes today with URIsymptoms and severe wheezing and asthma exacerbation. COVID was negative. Chest x-ray is clear. D-dimer is negative and I do not believe this represents a pulmonary embolism. I suspect this is likely some other viral illness prompting her bronchospasm. She received only a 5 mg dose of prednisone priorto arrival. She was treated with parenteral steroids, magnesium, IV fluids and an hour-long DuoNeb. She improved but had persistent wheezing. I recommended that we admit her to the hospital. She was very adamant that she did not wish to be admitted to the hospital. She thus stayed for 4 hours and we were able to reassess her and she gradually improved. On reassessment at 4-hour wesley, she had no wheezing on examination she felt significantly improved. She still reported some dyspnea when walking to the bathroom but she continues to want us to be discharged. She understands the risk versus benefits of leaving and she has capacity to make this decision. She agreed to return if her symptoms worsen. She was called by the original clinician and told that the prescription for the prednisone should have been for 60 mg and they called her a new prescription in for this. She should take this through the completion. I gave her a AeroChamber as she did not have this at home. I gave her a refill on her nebulizer solution with DuoNebs. She reports that she has multiple albuterol inhalers at home already. Again she is asked to have a low threshold to return if worsening. At this time, with reasonable clinical confidence, I do believe she safe for discharge home. Diagnosis: ICD-10-CM 1. Severe asthma with exacerbation, unspecified whether persistent J45.901 Discharge Medications: Discharge Medication List as of 03/28/2022 4:47 PM START taking these medications Details ipratropium - albuterol 0.5 mg/2.5 mg/3 mL (DUONEB) 0.5-2.5 (3) MG/3ML neb solution Take 1 vial (3 mLs) by nebulization every 6 hours as needed for shortness of breath / dyspnea or wheezing, Disp-90 mL, R-0, E-Prescribe Scribe Disclosure: I, Gerry Mahajan, am serving as a scribe at 12:02 PM on 03/28/2022 to document services personally performed by Mercedes Foster MD based on my observations and the provider's statements to me. Mercedes Foster MD 03/28/221843 Mercedes Foster MD 03/28/221844 documented in this encounter Plan of Treatment Not on filedocumented as of this encounter Procedures Procedure Name Priority Date/Time Associated Comments Diagnosis XR CHEST 2 VIEWS STAT 03/28/2022 1:18 PM Resul ts for this CDT procedure are i n the results section. INFLUENZA A/B & STAT 03/28/2022 12:03 Results for this SARS-COV2 PCR PM CDT procedure are in MULTIPLEX the results section. CBC WITH PLATELETS AND STAT 03/28/2022 11:46 R esults for this DIFFERENTIAL AM CDT procedure are i n the results section. TROPONIN T, HIGH STAT 03/28/2022 11:46 Results for this SENSITIVITY AM CDT procedure are i n the results section. CBC WITH PLATELETS & STAT 03/28/2022 11:46 Res ults for this DIFFERENTIAL AM CDT procedure are i n the results section. NT PROBNP INPATIENT STAT 03/28/2022 11:46 Resu lts for this AM CDT procedure are i n the results section. HCG QUALITATIVE STAT 03/28/2022 11:46 Results for this AM CDT procedure are i n the results section. D DIMER QUANTITATIVE STAT 03/28/2022 11:46 Res ults for this AM CDT procedure are i n the results section. BLOOD GAS VENOUS WITH STAT 03/28/2022 11:46 Re sults for this OXYHEMOGLOBIN AM CDT procedure are in the results section. BASIC METABOLIC PANEL STAT 03/28/2022 11:46 Re sults for this AM CDT procedure are i n the results section. EKG 12-LEAD, TRACING STAT 03/28/2022 11:38 Res ults for this ONLY AM CDT procedure are i n the results section. documented in this encounter Results Chest XR, PA & LAT (03/28/2022 1:18 PM CDT) Anatomical Region Laterality Modality Chest Digital Radiography Specimen (Source) Anatomical Location Collection Method / Collectio n Time Received Time / Laterality Volume Impressions 03/28/2022 1:21 PM CDT IMPRESSION: No infiltrate, pleural effusion or pneumothorax. The cardiac and mediastinal silhouettes are normal. MATI QUIÑONEZ MD Narrative 03/28/2022 1:21 PM CDT XR CHEST 2 VIEWS 03/28/2022 1:18 PM HISTORY: shortness of breath COMPARISON: None. Procedure Note Mati Quiñonez MD - 03/28/2022 XR CHEST 2 VIEWS 03/28/2022 1:18 PM HISTORY: shortness of breath COMPARISON: None. IMPRESSION: No infiltrate, pleural effus ion or pneumothorax. The cardiac and mediastinal silhouettes are normal. MATI QUIÑONEZ MD Mercedes Foster MD [facility]NO[facility]AG[facility] ORDER CARMEN Symptomatic; Unknown Influenza A/B & SARS-CoV2 (COVID-19) Virus PCR Multiplex Nose (03/28/2022 12:03 PM CDT) Analysis Performed At Patho logist Time Signature Influenza A Negative Negative 03/28/2022 [facility] PCR 12:54 PM CDT Influenza B Negative Negative 03/28/2022 [facility] PCR 12:54 PM CDT RSV PCR Negative Negative 03/28/2022 [facility] 12:54 PM CDT SARS CoV2 PCR Negative Negative 03/28/2022 [facility]ATORY 12:54 PM CDT Comment: NEGATIVE: SARS-CoV-2 (COVID-19) RNA not detected, presumed negative. Specimen Anatomical Collection Method Collection Time Receive d Time (Source) Location / / Volume Laterality Swab NASAL STRUCTURE / Non-blood 03/28/2022 12:03 2021 Unknown Collection / PM CDT 12:07 PM CDT Unknown Narrative [facility] - 03/28/2022 12:54 PM CDT Testing was performed using the Xpert Xpress CoV2/Flu/RSV Assay on the [employer] GeneXpert Instrument. This test should be ordered for the detection of SARS-CoV- 2 and influenza viruses in individuals who meet clinical and/or epidemiological cri teria. Test performance is unknown in asymptomatic patients. This test is for in vitro diagnostic use under the FDA EUA for laboratories certified under CLIA to p erform high or moderate complexity testi ng. This test has not been FDA cleared or approved. A negative result does not rule out the presence of PCR inhibitors in the specimen or target RNA in concentrat ion below the limit of detection for the assay. If only one viral target is positive but coinfection with multiple targets is suspected, the sample should be re-tested with another FDA cleared, approved , or authorized test, if coinfection wou ld change clinical management. This test was validated by the [facility]. These laboratories are certified under the Clinical Laboratory Improvement Amendments of 198 8 (CLIA-88) as qualified to perform high complexity laboratory testing. Mercedes Foster MD LAB - MICRO GENERAL ORDERABL ES Performing Organization Address City/State/[place] [id number] Care Lab [address] [facility] Lab (1st floor, no room number) (ABNORMAL) CBC with platelets and differential (03/28/2022 11:46 AM CDT) [facility] gist Method Time Signature WBC Count 5.2 4.0 - 03/28/2022 LABORATORY 11.0 12:19 PM CDT 10e3/uL RBC Count 4.16 3.80 - 03/28/2022 LABORATORY 5.20 12:19 PM CDT 10e6/uL Hemoglobin 13.3 11.7 - 03/28/2022 LABORATORY 15.7 g/dL 12:19 PM CDT Hematocrit 41.3 35.0 - 03/28/2022 LABORATORY 47.0 % 12:19 PM CDT MCV 99 78 - 100 03/28/2022 [facility] fL 12:19 PM CDT MCH 32.0 26.5 - 03/28/2022 [facility] 33.0 pg 12:19 PM CDT MCHC 32.2 31.5 - 03/28/2022 [facility] 36.5 g/dL 12:19 PM CDT RDW 12.6 10.0 - 03/28/2022 [facility] 15.0 % 12:19 PM CDT Platelet Count 216 150 - 450 03/28/2022 [facility] 10e3/uL 12:19 PM CDT % Neutrophils 74 % 03/28/2022 [facility] 12:19 PM CDT % Lymphocytes 13 % 03/28/2022 [facility] 12:19 PM CDT % Monocytes 6 % 03/28/2022 [facility] 12:19 PM CDT % Eosinophils 7 % 03/28/2022 [facility] 12:19 PM CDT % Basophils 0 % 03/28/2022 [facility] 12:19 PM CDT % Immature 0 % 03/28/2022 [facility] Granulocytes 12:19 PM CDT NRBCs per 100 WBC 0 <1 /100 03/28/2022 [facility] RY 12:19 PM CDT Absolute 3.8 1.6 - 8.3 03/28/2022 [facility] Neutrophils 10e3/uL 12:19 PM CDT Absolute 0.7 (L) 0.8 - 5.3 03/28/2022 [facility] Lymphocytes 10e3/uL 12:19 PM CDT Absolute 0.3 0.0 - 1.3 03/28/2022 [facility] Monocytes 10e3/uL 12:19 PM CDT Absolute 0.4 0.0 - 0.7 03/28/2022 [facility] Eosinophils 10e3/uL 12:19 PM CDT Absolute 0.0 0.0 - 0.2 03/28/2022 [facility] Basophils 10e3/uL 12:19 PM CDT Absolute Immature 0.0 <=0.4 03/28/2022 [facility] Granulocytes 10e3/uL 12:19 PM CDT Absolute NRBCs 0.0 10e3/uL 03/28/2022 [facility] 12:19 PM CDT Specimen Anatomical Collection Method / Collection Time Recei kinga Time (Source) Location / Volume Laterality Blood STRUCTURE OF RIGHT Venipuncture / 03/28/2022 11:46 UPPER LIMB / Unknown AM CDT 12:00 PM CDT Unknown Mercedes Foster MD LAB - BLOOD ORDERABLES Performing Organization Address City/[facility]/ZIP Code [place] [address] Care Lab [address] Lab (1st floor, no room number) (ABNORMAL) Blood gas venous and oxyhgb (03/28/2022 11:46 AM CDT) [employer] Method Time Signature pH Venous 7.40 7.32 - 03/28/2022 [facility] 7.43 12:14 PM CDT pCO2 Venous 43 40 - 50 03/28/2022 [facility] mm Hg 12:14 PM CDT pO2 Venous 44 25 - 47 03/28/2022 [facility] mm Hg 12:14 PM CDT Bicarbonate Venous 27 21 - 28 03/28/2022 [facility] ORY mmol/L 12:14 PM CDT FIO2 0 JEIMY 03/28/2022 [facility] 12:14 PM CDT Oxyhemoglobin 78 (H) 70 - 75 % 03/28/2022 [facility] Venous 12:14 PM CDT Base 1.4 -7.7 - 03/28/2022 [facility] Excess/Deficit 1.9 12:14 PM CDT (+/-) mmol/L Specimen Anatomical Collection Method / Collection Time Recei kinga Time (Source) Location / Volume Laterality Blood, venous STRUCTURE OF RIGHT Venipuncture / 03/28/2022 11:46 UPPER LIMB / Unknown AM CDT 12:00 PM CDT Unknown Mercedes Foster MD LAB - BLOOD ORDERABLES Performing Organization Address City/[facility]/ZIP Code [place] [address] Care Lab [address] Lab (1st floor, no room number) HCG QUALitative (blood) (03/28/2022 11:46 AM CDT) Tailored Method Time Signature hCG Serum Negative Negative JEIMY 03/28/2022 [facility] Qualitative 12:32 PM CDT Comment: This test is for screening purp oses. Results should be interpreted along with the clinical picture. Confirmation testing is available if warranted by ordering [id number], HCG Quantitative . Specimen Anatomical Collection Method / Collection Time Recei kinga Time (Source) Location / Volume Laterality Blood STRUCTURE OF RIGHT Venipuncture / 03/28/2022 11:46 UPPER LIMB / Unknown AM CDT 12:00 PM CDT Unknown Mercedes Foster MD LAB - BLOOD ORDERABLES Performing Organization Address [facility]/ZIP Code [place] [address] Care Lab [address] Lab (1st floor, no room number) Nt probnp inpatient (03/28/2022 11:46 AM CDT) athologist Signature N terminal Pro 130 0 - 450 03/28/2022 LABORATORY BNP Inpatient pg/mL 12:43 PM CDT Comment: Reference range shown and results flagge d as abnormal are suggested inpatient cut points for confirming diagnosis if CHF in an acute setting. Establishing a baseline value for each individual patient is useful for follow-up. An inpatient or e mergency department NT-proPBNP <300 pg/mL effectively rules out acute CHF, with 99% negative predictive value. The outpatient non-acute reference range for ruling out CHF is: 0-125 pg/mL (age 18 to less than 75) 0-450 pg/mL (age 75 yrs and older) Specimen Anatomical Collection Method / Collection Time Recei kinga Time (Source) Location / Volume Laterality Blood STRUCTURE OF RIGHT Venipuncture / 03/28/2022 11:46 UPPER LIMB / Unknown AM CDT 12:00 PM CDT Unknown Mercedes Foster MD LAB - BLOOD ORDERABLES Performing Organization Address City/[facility]/ZIP Code Phon [place] [address] Care Lab [address] Lab (1st floor, no room number) Troponin T, High Sensitivity (03/28/2022 11:46 AM CDT) athologist Signature Troponin T, High <6 <=14 ng/L 03/28/2022 [facility] LABORATOR Y Sensitivity 12:53 PM CDT Specimen Anatomical Collection Method / Collection Time Recei kinga Time (Source) Location / Volume Laterality Blood STRUCTURE OF RIGHT Venipuncture / 03/28/2022 11:46 UPPER LIMB / Unknown AM CDT 12:00 PM CDT Unknown Mercedes Foster MD LAB - BLOOD ORDERABLES Performing Organization Address City/[facility]/ZIP Code Phon [place] [address] Care Lab [address] Lab (1st floor, no room number) D dimer quantitative (03/28/2022 11:46 AM CDT) Analysis Performed At Patho logist Time Signature D-Dimer 0.35 0.00 - 03/28/2022 [facility]AT[facility] Quantitative 0.50 ug/mL 12:16 PM CDT FEU Specimen Anatomical Collection Method / Collection Time Recei kinga Time (Source) Location / Volume Laterality Blood STRUCTURE OF RIGHT Venipuncture / 03/28/2022 11:46 UPPER LIMB / Unknown AM CDT 12:00 PM CDT Unknown Narrative [facility]ORATORY - 03/28/2022 12:16 PM CDT This D-dimer assay is intended for use i n conjunction with a clinical pretest probability assessment model to exclude pulmonary embolism (PE) and deep venous thrombosis (DVT) in outpatients suspecte d of PE or DVT. The cut-off value is 0.50 ug/mL FEU. Mercedes Foster MD LAB - BLOOD ORDERABLES Performing Organization Address [facility] [place] [address] Care Lab [address] Lab (1st floor, no room number) (ABNORMAL) Basic metabolic panel (03/28/2022 11:46 AM CDT) Analysis Performed At Patho logist Time Signature Creatinine 0.74 0.51 - 03/28/2022 [facility] LABORATORY 0.95 mg/dL 12:31 PM CDT Sodium 139 136 - 145 03/28/2022 [facility]ORAT[facility] mmol/L 12:31 PM CDT Potassium 4.3 3.4 - 5.3 03/28/2022 [facility]ORAT[facility] mmol/L 12:31 PM CDT Urea Nitrogen 4.9 (L) 6.0 - 20.0 03/28/2022 LABORATORY mg/dL 12:31 PM CDT Chloride 103 98 - 107 03/28/2022 LABORATORY mmol/L 12:31 PM CDT Carbon Dioxide 24 22 - 29 03/28/2022 LABORATORY (CO2) mmol/L 12:31 PM CDT Anion Gap 12 7 - 15 03/28/2022 LABORATORY mmol/L 12:31 PM CDT Glucose 201 (H) 70 - 99 03/28/2022 LABORATORY mg/dL 12:31 PM CDT GFR Estimate >90 >60 03/28/2022 LABORATORY mL/min/1.7 12:31 PM CDT 3m2 Comment: Effective July 24, 2021 eGF Rcr in adults is calculated using the 2020 CKD-EPI creatinine equation which includ es age and gender (Hannah et al., [place], DOI: 10.1056/HIWWtt1501274) Calcium 9.6 8.6 - 10.0 mg/dL 03/28/2022 12:31 PM CDT LABORATORY Specimen Anatomical Collection Method / Collection Time Recei kinga Time (Source) Location / Volume Laterality Blood STRUCTURE OF RIGHT Venipuncture / 03/28/2022 11:46 UPPER LIMB / Unknown AM CDT 12:00 PM CDT Unknown Mercedes Foster MD LAB - BLOOD ORDERABLES Performing Organization Address City/State/ZIP Code [place] [address] Care Lab [address] Lab (1st floor, no room number) EKG 12 lead (03/28/2022 11:38 AM CDT) Component Value Ref Range Test Analysis Performed Pathologis t Method Time At Signature Systolic Blood mmHg RADIOLOGY Pressure RESULTS Diastolic Blood mmHg RADIOLOGY Pressure RESULTS Ventricular Rate 116 BPM RADIOLOGY RESULTS Atrial Rate 116 BPM RADIOLOGY RESULTS MS Interval 118 ms RADIOLOGY RESULTS QRS Duration 80 ms RADIOLOGY RESULTS QT 330 ms RADIOLOGY RESULTS QTc 458 ms RADIOLOGY RESULTS P Turpin 85 degrees RADIOLOGY RESULTS R AXIS 52 degrees RADIOLOGY RESULTS T Turpin 1 degrees RADIOLOGY RESULTS Interpretation Sinus tachycardia RADIOLO GY ECG Nonspecific T wave abnormality RESULTS Abnormal ECG No previous ECGs available Confirmed by - EMERGENCY REECE Arnett PHYSICIAN ([id number]), make up editor DARLENE MOLINA ([id number]) on 03/28/2022 12:52:37 PM Specimen Anatomical Collection Method Collection Time Receive d Time (Source) Location / / Volume Laterality 03/28/2022 11:38 03/28/2022 AM CDT 12:52 PM CDT Mercedes Foster MD ECG ORDERABLES Performing Organization Address City/State/ZIP Code Phon e Number RADIOLOGY RESULTS documented in this encounter Visit Diagnoses Diagnosis Severe asthma with exacerbation, unspeci fied whether persistent documented in this encounter Administered Medications Inactive Administered Medications - up to 3 most recent administrations Medication Order MAR Action Action Date Dose Rate Site 0.9% sodium chloride BOLUS New Bag 03/28/2022 11:56 AM CDT 500 mLs 500 mL/hr Intravenous, 500 mL, ONCE, at 500 mL/hr, Administer over 1 Hours, On Meli 03/28/22 at 1145, For 1 dose ipratropium - albuterol 0.5 mg/2.5 mg/3 mL Given 03/28/2022 11:5 5 AM CDT 3 mLs (DUONEB) neb solution 3 mL 3 mL, Nebulization, EVERY 15 MIN, First dose on Meli 03/28/22 at 1145, For 3 doses, Unless contraindicated per nursing assessment. Notify provider if dose is held. Reassess after 3rd dose and notify provider of results. magnesium sulfate 2 g in water intermittent New Bag 03/28/2022 11:58 AM CDT 2 g infusion 2 g, Intravenous, Administer over 15-30 Minutes, ONCE, On Meli 03/28/22 at 1145, For 1 dose methylPREDNISolone sodium succinate Given 03/28/2022 11:56 AM CD T 125 mg (solu-MEDROL) injection 125 mg 125 mg, Intravenous, ONCE, On Meli 03/28/22 at 1145, For 1 dose, Doses greater than or equal to 1000 mg administer over 60 minutes Doses greater than or equal to 500 mg administer over 30-60 minutes Doses greater than or equal to 250 mg administer over 15-30 minutes Doses less than or equal to 125 mg IVP over 3-5 minutes documented in this encounter Active and Recently Administered Medications Times are shown in CDT. Scheduled Medication Order 03/26/2022 03/27/2022 03/28/2022 0.9% sodium chloride BOLUS (COMPLETED) 1156 (New Bag - Provider: Harpal Hewitt RN)1251 (Stopped - Provider: Harpal Hewitt RN) Intravenous, 500 mL, ONCE, at 500 mL/hr, Administer over 1 Hours, On Meli 03/28/22 at 1145, For 1 dose aerochamber with mouthpiece (NO mask) - > 5 years 1 each 1645 (Canceled Entry - Provider: Orders Generic Provider - Comment: Automatically canceled at discontinue of medication order) 1 each, Inhalation, ONCE, On Meli 03/28/22 at 1645, For 1 dose, Route is inhalation so it appears on the RT MAR Tab. ipratropium - albuterol 0.5 mg/2.5 mg/3 mL (DUONEB) neb solution 3 mL 1155 (Given - Provider: Harpal Hewitt RN)1200 (Due)1215 (Due) 3 mL, Nebulization, EVERY 15 MIN, First dose on Meli 03/28/22 at 1145, For 3 doses, Unless contraindicated per nursing assessment. Notify provider if dose is held. Reassess after 3rd dose and notify provider of results. magnesium sulfate 2 g in water intermittent infusion (COMPLETED) 1158 (New Bag - Provider: Harpal Hewitt RN)1251 (Stopped - Provider: Harpal Hewitt RN) 2 g, Intravenous, Administer over 15-30 Minutes, ONCE, On Meli 03/28/22 at 1145, For 1 dose methylPREDNISolone sodium succinate (solu-MEDROL) injection 125 mg (COMPLETED) 1156 (Given - Provider: Harpal Hewitt RN) 125 mg, Intravenous, ONCE, On Meli 2 at 1145, For 1 dose, Doses greater than or equal to 1000 mg administer over 60 minutes Doses greater than or equal to 500 mg administer over 30-60 minutes Doses greater than or equal to [address] over 15-30 minutes Doses less than or equal to 125 mg IVP over 3-5 minutes documented in this encounter Additional Health Concerns Infection Onset Date Last Indicated Resolved Time Rule Out COVID-19 03/28/2022 03/28/2022 03/28/2022 12: 54 PM CDT documented as of this encounter Care Teams Machinist 2Nd Shift Relationship Specialty Start Date End Date Andres North MD PCP - General Family Practice 08/28/[address], [address] [address] documented as of this encounter
--- OUTSIDE RECORDS SUMMARY | 2022-04-24 09:32 | XMS_ITS | Encounter Summary ---
:1985 Author Organization [place] Address [address] [place] [address] Care Team Providers Name Role Phone Edwige Hernandez MD Primary Care Provider Reason for Visit Reason Comments UTI sxs times 6 hrs Urgent Care Encounter Details Date Type Department Care Team Description 04/04/[address] [facility] Di Frazieruria (Primary Dx) Urgent Care Dino Damian MD [address] [phone] [id number] Social History Tobacco Use Types Packs/Day Years Used Date Never Smoker Alcohol Use Standard Drinks/Week Comments No 0 (1 standard drink = 0.6 oz pure alcoho l) Sex Assigned at Date Recorded Not on file documented as of this encounter Last Filed Vital Signs Vital Sign Reading Time Taken Comments Blood Pressure 118/84 04/04/2009 8:35 PM CDT Pulse 72 04/04/2009 8:35 PM CDT Temperature 36.3 ??C (97.3 ??F) 04/04/2009 8:35 PM CDT Respiratory Rate - - Oxygen Saturation - - Inhaled Oxygen Concentration - - Weight 61.7 kg (136 lb) 04/04/2009 8:35 PM CDT Height - - Body Mass Index 22.12 01/16/2006 3:00 PM CDT documented in this encounter Progress Notes Di Frazier - 04/04/2009 9:26 PM CDT SUBJECTIVE: Jacque Sierra is a 23 year old female who presents today for a possible UTI. Symptoms of dysuria, urgency, frequency and burning have been going on for 6hours(s). Hematuria no. sudden onset and still presentand moderate. There is no history of fever, chills, nausea or vomiting. No history of vaginal discharge. This patient does have a history of urinary tract infections. Patient denies long duration, rigors, flank pain, temperature > 101 degrees F. and Vomiting, significant nausea or diarrhea or vaginal discharge, vaginal odor, vaginal itching and dyspareunia Past Medical History Diagnosis Date ??? ALLERGIC RHINITIS NOS Current outpatient prescriptions Medication Sig ??? CYSTEX OR None Entered ??? CEFZIL 500 MG OR TABS ONE TABLET TWICE DAILY ??? VICODIN 5-500 MG OR TABS ONE TO TWO TABLETS EVERY 4 TO 6 HOURS NEEDED FOR PAIN ??? CRANBERRY OR QD ??? FLONASE 50 MCG/ACT NA SUSP PRN ??? CEPHALEXIN 500 MG OR TABS 1 tab TID ??? CYSTEX OR PRN ??? BENADRYL ALLERGY OR QD ??? HYDROCODONE-ACETAMINOPHEN 10-325 MG OR TABS TAKE 1 TO 2 TABLETS EVER 4 TO 6 HOURS NEEDED FOR PAIN ??? JODI 28 3-0.03 MG OR TABS 1 TABLET DAILY ??? ORTHO TRI-CYCLEN LO 0.025 MG OR TABS 1 TABLET DAILY ??? JODI 28 3-0.03 MG OR TABS 1 TABLET DAILY History Substance Use Topics ??? Tobacco Use: Never ??? Alcohol Use: No ROS: CONSTITUTIONAL:NEGATIVE for fever, chills, change in weight INTEGUMENTARY/SKIN: NEGATIVE for worrisome rashes, moles or lesions EYES: NEGATIVE for vision changes or irritation ENT/MOUTH: NEGATIVE for ear, mouth and throat problems RESP:NEGATIVE for significant cough or SOB GI: NEGATIVE for nausea, abdominal pain, heartburn, or change in bowel habits OBJECTIVE: BP 118/84 Pulse 72 Temp 97.3 ??F (36.3 ??C) Wt 136 lb (61.689 kg) GENERAL APPEARANCE: healthy, alert and no distress RESP: lungs clear to auscultation - no rales, rhonchi or wheezes CV: regular rates and rhythm, normal S1 S2, no murmur noted ABDOMEN: soft, nontender, no HSM or masses and bowel sounds normal BACK: No CVA tenderness SKIN: no suspicious lesions or rashes UA- few rbc, wbc ASSESSMENT: Lower, uncomplicated urinary tract infection. PLAN: Cefzil Vicodin for pain Says she will seek urology eval. Due to repeated utis As per ordered Drink plenty of fluids. Prevention and treatment of UTI's discussed.Signs and symptoms of pyelonephritis mentioned. Follow up with primary care physician if not improving We discussed that dysuria with a negative UA could be present in early UTI or could be consistent with a urethritis caused by mycoplasma, ureaplasma or chlamydia. documented in this encounter Nursing Notes 04/04/2009 8:30 PM CDT >> BEVERLEY Ny Apr 04, 2009 8:38 PM Patient presents with: UTI - sxs times 6 hrs Urgent Care Initial BP 118/84 Pulse 72 Temp 97.3 ??F (36.3 ??C) Wt 136 lb (61.689 kg) Estimated Body mass index is 22.12 kg/(m^2) as calculated from: Height of 5' 5.75 (1.67 m) as of 01/16/06 Weight of 136 lb (61.689 kg) as of this encounter. BP completed using cuff size: regular.[facility] Beverley Smith RN documented in this encounter Plan of Treatment Not on filedocumented as of this encounter Procedures Procedure Name Priority Date/Time Associated Diagnosis Comme nts HCL CULTURE, URINE Routine 04/04/2009 8:49 PM Dysuria Res ults for this CDT procedure are i n the results section. HCL UA MICRO IF Routine 04/04/2009 8:38 PM Dysuria Result s for this POSITIVE CDT procedure are i n the results section. CL AFF MICRO Routine 04/04/2009 8:38 PM Results f or this EXAM-URINE CDT procedure are i n the results section. documented in this encounter Results URINE CULTURE (04/04/2009 8:49 PM CDT) [facility] Method Time Signature Specimen Midstream Urine [facility] Description [facility] Culture Micro 50 to 100,000 [place] colonies/mL [facility] coli Report status FINAL [facility] 04/06/2009 [facility] Specimen Anatomical Collection Method Collection Time Receive d Time (Source) Location / / Volume Laterality 04/04/2009 8:49 PM 9 8:54 CDT PM CDT Organism Antibiotic Method Susceptibility 50 to 100,000 colonies/ml Amoxicillin/Clav Susce ptible escherichia coli (yanick) 50 to 100,000 colonies/ml Ampicillin <=2 [place] sceptible escherichia coli (yanick) 50 to 100,000 colonies/ml Cefazolin <=4 [place] sceptible escherichia coli (yanick) 50 to 100,000 colonies/ml Cefoxitin <=4 [place] sceptible escherichia coli (yanick) 50 to 100,000 colonies/ml Ceftriaxone <=1 [place] sceptible escherichia coli (yanick) 50 to 100,000 colonies/ml Ciprofloxacin <=0.25 Susceptible escherichia coli (yanick) 50 to 100,000 colonies/ml Gentamicin <=1 [place] sceptible escherichia coli (yanick) 50 to 100,000 colonies/ml Levofloxacin <=0.12 Susceptible escherichia coli (yanick) 50 to 100,000 colonies/ml Nitrofurantoin <=16 S usceptible escherichia coli (yanick) 50 to 100,000 colonies/ml Tobramycin <=1 [place] sceptible escherichia coli (yanick) 50 to 100,000 colonies/ml Trimethoprim/Sulfamethoxazole <=1/19 Susceptible escherichia coli (yanick) 50 to 100,000 colonies/ml Ampicillin/Sulbactam < =2 Susceptible escherichia coli (yanick) 50 to 100,000 colonies/ml Cefotaxime (meningitis) Susceptible escherichia coli (yanick) 50 to 100,000 colonies/ml Piperacillin/Tazo <=4 Susceptible escherichia coli (yanick) Di Frazier MD LABORATORY Performing Organization Address City/State/ZIP Code Phon e Number [facility] [address] [address] [facility] (ABNORMAL) MICRO EXAM-URINE (04/04/2009 8:38 PM CDT) P athologist Signature WBC Urine 2-5 (A) 0 - 2 /HPF [facility] RBC Urine 2-5 (A) 0 - 2 /HPF [facility] Specimen Anatomical Collection Method Collection Time Receive d Time (Source) Location / / Volume Laterality 04/04/2009 8:38 PM 9 8:43 CDT PM CDT Meliza Morin PA-C LABORATORY Performing Organization Address City/[facility]/ZIP Code Phon e Number [facility] [address] [place] [address] [facility] (ABNORMAL) UA MICRO IF POSITIVE (04/04/2009 8:38 PM CDT) [facility] Method Time Signature Color Urine Yellow [facility] Appearance Urine Clear [facility] Glucose Urine Negative NEG mg/dL [facility] Bilirubin Urine Negative NEG [facility] Ketones Urine Negative NEG mg/dL [facility] Specific [place] <=1.005 1.003 - [place] Urine 1.035 [facility] Blood Urine Small (A) NEG [facility] pH Urine 6.0 5.0 - 7.0 [place] pH [facility] Protein Albumin Negative NEG mg/dL [place] Urine [facility] Urobilinogen 0.2 0.2 - 1.0 [place] Urine EU/dL [facility] Nitrite Urine Negative NEG [facility] Leukocyte Small (A) NEG [place] Esterase Urine [facility] Source Midstream [place] Urine [facility] Specimen Anatomical Collection Method Collection Time Receive d Time (Source) Location / / Volume Laterality 04/04/2009 8:38 PM 9 8:43 CDT PM CDT Meliza Morin PA-C LABORATORY Performing Organization Address City/[facility]/ZIP Code Phon e Number [facility] [address] [place] [address] [facility] documented in this encounter Visit Diagnoses Diagnosis Dysuria - Primary documented in this encounter Care Teams Assistant Manager Trainee Relationship Specialty Start Date End Date Edwige Hernandez MD PCP - General 09/19/01 08/27/12 documented as of this encounter
--- OUTSIDE RECORDS SUMMARY | 2022-04-24 09:32 | XMS_ITS | Encounter Summary ---
:1985 Author Organization [place] Address [address] [place] [address] Care Team Providers Name Role Phone Edwige Hernandez MD Primary Care Provider Reason for Visit Reason Comments Sinus Problem sinusitis - acute UTI irregular menses r/o Encounter Details Date Type Department Care Team Description 02/27/2003 Abstract M [facility] Urgent Care Richard parra MD [place] [address] [place] [address] [phone] (Wo rk) Social History Tobacco Use Types Packs/Day Years Used Date Never Smoker Alcohol Use Standard Drinks/Week Comments No 0 (1 standard drink = 0.6 oz pure alcoho l) Sex Assigned at Date Recorded Not on file documented as of this encounter Progress Notes 02/27/2003 11:59 PM CDT Bactrim DS 1 tab po bid x 10 days continue Flonase Metronidazole 500mg po bid x 7 days This informat ion has been abstracted from the urgent care chart. documented in this encounter Plan of Treatment Not on filedocumented as of this encounter Visit Diagnoses Not on filedocumented in this encounter Care Teams Heel Seat Pounder Relationship Specialty Start Date End Date Edwige Hernandez MD PCP - General 09/19/01 08/27/12 documented as of this encounter
--- OUTSIDE RECORDS SUMMARY | 2022-04-24 09:32 | XMS_ITS | Encounter Summary ---
:1985 Author Organization [place] Address [facility] 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 Edwige Hernandez, CURT E CAR LOADER Physicians MD EXAMINATION (Primary [address] FAMILY Dx) [address] [place], [place] [address] [id number] [address] [place], [place] [address] Social History Tobacco Use Types Packs/Day Years Used Date Never Smoker Alcohol Use Standard Drinks/Week Comments No 0 (1 standard drink = 0.6 oz pure alcoho l) Sex Assigned at Date Recorded Not on file documented as of this encounter Last Filed Vital Signs Vital Sign Reading Time Taken Comments Blood Pressure 124/70 01/16/2006 3:00 PM CDT Pulse 72 01/16/2006 3:00 PM CDT Temperature 36.6 ??C (97.8 ??F) 01/16/2006 3:00 PM CDT Respiratory Rate - - Oxygen Saturation - - Inhaled Oxygen Concentration - - Weight 64.4 kg (142 lb) 01/16/2006 3:00 PM CDT Height 167 cm (5' 5.75) 01/16/2006 3:00 PM CDT Body Mass Index 23.09 01/16/2006 3:00 PM CDT documented in this encounter Progress Notes Edwige Hernandez MD - 01/16/2006 3:25 PM CDT SUBJECTIVE: Jacque Sierra is an 20 year old woman who presents for annual field manager exam. Concerns today are: 1) continue jodi Patient's last menstrual period was 12/19/2005.. Periods are regular q 28-30 days, lasting 4 days. Other menstral problems: Current contraception: oral contraceptives History of abnormal Pap smear: no Regular self breast exam: No History of abnormal mammogram: no Family history of breast, uterine or ovarian cancer: no History of abnormal lipids: no safe in home? yes There is no problem list on file for this patient. Past Medical History Diagnosis Date ??? ALLERGIC RHINITIS NOS Family History Problem Relation ??? Diabetes Father type 2 ??? Depression Mother ??? Respiratory Brother asthma ??? Respiratory Mother asthma History Social History ??? Marital Status: Single Spouse Name: N/A Number of Children: N/A ??? 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 Tobacco Use: Never ??? Alcohol Use: No ??? Drug Use: No ??? Sexually Active: Not Currently Other Topics Concern ??? Caffeine No ??? Weight Concern Yes gained 20 pounds on control ??? Exercise Yes ??? Seat Belt Yes Social History Narrative ??? No narrative on file Current outpatient prescriptions prior to 01/16/06: ORTHO TRI-CYCLEN LO 0.025 MG OR TABS 1 TABLET DAILY JODI 28 3-0.03 MG OR TABS 1 TABLET DAILY FLONASE INHA 50 MCG/DOSE NA 2 SPRAYS IN EACH NOSTRIL QD (Once per day) Allergies Allergen Reactions ??? Penicillins ??? Quinolones Levaquin - hives Immunization History Name Date(s) Administered ??? DPT 1984, 1984, 02/26/1985, 07/20/1986, 02/05/1990 ??? HIB 07/20/1986 ??? Hepatitis B 03/14/1997, 02/12/2001 ??? MMR 11/23/1985, 03/14/1997 ??? OPV 1984, 1984, 07/20/1986, 02/05/1990 ??? Td (Adult) 03/14/1997 Review Of Systems Ears/Nose/Throat: negative Respiratory: negative Cardiovascular: negative Gastrointestinal: negative Genitourinary: negative OBJECTIVE: BP 124/70 Pulse 72 Temp 97.8 Ht 11' 10 (3.61m) Wt 65 lbs 12.0 oz (29.8kg) LMP 12/19/2005 General appearance: healthy,alert,no distress Skin: Skin color, texture, turgor normal. No rashes or lesions. Ears: negative Nose/Sinuses: Nares normal. Septum midline. Mucosa normal. No drainage or sinus tenderness. Oropharynx: Lips, mucosa, and tongue normal. Teeth and gums normal. Neck: Neck supple. No adenopathy. Thyroid symmetric, normal size,,Carotids without bruits. Lungs: negative,Percussion normal. Good diaphragmatic excursion. Lungs clear Heart: negative,PMI normal. No lifts, heaves, or thrills. RRR. No murmurs, clicks gallops or rub Breasts: Inspection negative. No nipple discharge or bleeding. No masses. Abdomen: Abdomen soft, non-tender. BS normal. 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 Routine discussion about exercise, diet, calcium intake, caffeine, smoking, drinking, drugs, seat belts, aids, and hepatitis. Encouraged 100% seat belt use, and use of bike helmet if applicable and self breast exam q month. documented in this encounter Nursing Notes 01/16/2006 3:00 PM CDT >> LUL HELLER 01/16/2006 3:45 pm Body mass index is 23.10 kg/(m^2). >> LUL HELLER 01/16/2006 3:06 pm Patient is here for a full physical exam and pap. Also refill contraceptives. Questioned patient about current smoking habits. Pt. has never smoked. CLASSIFICATION OF OVERWEIGHT AND OBESITY BY BMI Obesity Class BMI(kg/m2) Underweight < 18.5 Normal 18.5-24.9 Overweight 25.0-29.9 OBESITY I 30.0-34.9 II 35.0-39.9 EXTREME OBESITY III >40 Patient's BMI Body mass index is 2.29 kg/(m^2). Http://hin.nhlbi.nih.gov/menuplanner/menu.cgi documented in this encounter Plan of Treatment Not on filedocumented as of this encounter Procedures Procedure Name Priority Date/Time Associated Diagnosis Comme nts ZZCL SPECIMEN Routine 01/29/2006 Routine Whiskey Filterer HANDLING, OFF->LAB Examination CL AFF HPV DNA, Routine 01/22/2006 6:00 PM Result s for this INT/HIGH RISK CDT procedure are in the results section. ZZCL AFF THIN LAY Routine 01/22/2006 6:00 PM Routine Whiskey Filterer Resu lts for this PAP,DIAG W/HPV CDT Examination procedure are in REFLEX the results section. ZZCL AFF HEMOGLOBIN Routine 01/16/2006 3:43 PM Routine Whiskey Filterer Re sults for this CDT Examination procedure are i n the results section. HC VENOUS COLLECTION Routine 01/16/2006 3:35 PM Routine Whiskey Filterer CDT Examination HCL URINALYSIS, Routine 01/16/2006 3:11 PM Routine Whiskey Filterer Result s for this MACROSCOPIC CDT Examination procedure are i n the results section. C PAP HANDLING FEE Routine 01/16/2006 3:06 PM Routine Whiskey Filterer CDT Examination documented in this encounter Results SPECIMEN HANDLING, OFF->LAB (01/29/2006) Narrative This result has an attachment that is no t available. Edwige Hernandez MD OTHER Performing Organization Address City/State/ZIP Code Phon e Number [facility] HPV DNA, INT/HIGH RISK (01/22/2006 6:00 PM CDT) P athologist Signature Hpv DNA SEE NOTE [facility] Comment: ? NOT DETECTED PATIENTS WITHOUT INFECTION BY HIGH-RISK HPV (TYPES 16, 18, 31, 33, 35, 39, 45, 51, 5 2, 56, 58, 59 AND 68) RARELY HAVE PRECANCEROUS LESIONS OR CANCER OF THE CERVIX. NO COLLECTION DATE RECEIVED. WE HAVE USE D THE DATE THE SPECIMEN WAS RECEIVED BY [facility] THE COLLECTION DATE. IF IS IS INCORRECT, PLEASE CONTACT CLIENT SERV ION. PHONE NUMBER: [phone] Test performed at [facility] [address] [place], [place] ??[address] Director: ERNESTO TRIPP MD Specimen (Source) Anatomical Collection Method Collection Time Re ceived Time Location / / Volume Laterality 01/16/2006 11:4 4 PM CDT Edwige Hernandez MD LAB - BLOOD ORDERABLES Performing Organization Address City/State/ZIP Code Phon e Number [facility] [address] [place] [address] THIN LAY PAP,DIAG W/HPV REFLEX (01/22/2006 6:00 PM CDT) athologist Signature Report status FINAL [facility] Clinical SEE NOTE [facility] Comment: PARA 0 0 LMP 05-18-06 [facility] Last Pap Diagnosis [facility] Prev Bx Dx NONE GIVEN [facility] Source none given [facility] Statement of Adequacy SEE NOTE [facility] Comment: Satisfactory for evaluation. Endocervical/transformation zone compone nt present. General Categorization SEE NOTE [facility] Comment: EPITHELIAL CELL ABNORMALITY: see interpretation/result. Descriptive Diagnosis SEE NOTE [facility] Comment: Atypical Squamous Cells of Undetermined Significance (ASC-US) Infection NOT AVAIL. [facility] Comment SEE NOTE [facility] Comment: As requested, sample will be submitted f or High/Int Risk HPV DNA Probe testing. Suggest clinical correlation and follow- up as clinically appropriate Senior Center Manager: SEE NOTE [facility] Comment: BIB, CT(ASCP) Review Senior Center Manager SEE NOTE [facility] Comment: BDB, CT(ASCP) Pathologist SEE NOTE [facility] Comment: Electronically signed by Madhu Crocker M.D. See Note SEE NOTE [facility] Comment: GYNECOLOGICAL CYTOLOGY IS A SCREENING TX OCEDURE SUBJECT TO BOTH FALSE NEGATIVE AND FALSE POSITIVE RESULTS. IT IS MOST RELIABLE WH EN A SATISFACTORY SAMPLE IS OBTAINED ON A REG ULAR REPETITIVE BASIS. RESULTS MUST BE INTERP RETED IN THE CONTEXT OF HISTORIC AND CURRENT C LINICAL INFORMATION. Test performed at [address] ??[address] Director: DR MARGAUX KOTHARI Specimen (Source) Anatomical Collection Method Collection Time Re ceived Time Location / / Volume Laterality 01/16/2006 11:4 4 PM CDT Narrative [facility] URY - 01/22/2006 6:00 PM CDT Additional Result Information INFECTION: RESULT NOT AVAILABLE Edwige Hernandez MD LABORATORY Performing Organization Address [facility]/ZIP Code Phon e Number [address] [address] [facility] HEMOGLOBIN (01/16/2006 3:43 PM CDT) athologist Signature Hemoglobin 13.4 12 - 16 [facility] GM/DL Edwige Hernandez MD LABORATORY Performing Organization Address [facility]/ZIP Code Phon e Number [facility] UA WITHOUT MICRO (01/16/2006 3:11 PM CDT) [facility] Signature Glucose Urine neg mg/dL [facility] Bilirubin Urine neg [facility] Ketones Urine neg mg/dL [facility] Specific [place] 1.010 [facility] Urine pH Arterial 6.5 5.0 - 7.0 [facility] Protein Urine neg neg - neg [facility] mg/dL Urobilinogen 0.2 EU/dL [facility] Urine Nitrite Urine neg [facility] Blood Urine neg [facility] Leukocytes neg [facility] Color Urine yellow [facility] Clarity clear [facility] Edwige Hernandez MD LABORATORY Performing Organization Address [facility]/ZIP Code Phon e Number [facility] documented in this encounter Visit Diagnoses Diagnosis Routine gynecological examination - Prim tanisha documented in this encounter Care Teams Java Android Developer Relationship Specialty Start Date End Date Edwige Hernandez MD PCP - General 09/19/01 08/27/12 documented as of this encounter
--- OUTSIDE RECORDS SUMMARY | 2022-04-24 09:32 | XMS_ITS | Encounter Summary ---
:1985 Author Organization [place] Address [address] [facility] [place] [address] Care Team Providers Name Role Phone Edwige Hernandez MD Primary Care Provider Reason for Visit Reason Comments UTI Urgent Care Encounter Details Date Type Department Care Team Description 12/24/2008 Office Visit [facility] Christopher Mcelroy UTI ([facility] Dion Piedra PA-C Infection) (Primary [address] [facility]) [facility] [phone] [place] [address] [facility] [address] [place] [address] Social History Tobacco Use Types Packs/Day Years Used Date Never Smoker Alcohol Use Standard Drinks/Week Comments No 0 (1 standard drink = 0.6 oz pure alcoho l) Sex Assigned at Date Recorded Not on file documented as of this encounter Last Filed Vital Signs Vital Sign Reading Time Taken Comments Blood Pressure 110/70 12/24/2008 9:29 AM CDT Pulse - - Temperature 35.6 ??C (96.1 ??F) 12/24/2008 9:29 AM CDT Respiratory Rate - - Oxygen Saturation - - Inhaled Oxygen Concentration - - Weight 59.8 kg (131 lb 12.8 oz) 12/24/2008 9:29 AM CDT Height - - Body Mass Index 21.44 01/16/2006 3:00 PM CDT documented in this encounter Progress Notes Vipin Her - 12/24/2008 10:35 AM CDT SUBJECTIVE: Jacque Sierra is a 23 year old female who presents today for a possible UTI. Symptoms of dysuria, urgency, frequency, burning and suprapubic pain and pressure have been going on for 8hours(s).Hematuria no. sudden onset and worseningand moderate and severe. There is no history of fever, chills, nausea or vomiting. No history of vaginal discharge. This patient does have a history of urinary tract infections - I have had about 20 in the past 2 years. Patient denies long duration, rigors, flank pain, temperature > 101 degrees F. and Vomiting, significant nausea or diarrhea or vaginal discharge, vaginal odor, vaginal itching and dyspareunia Past Medical History Diagnosis Date ??? ALLERGIC RHINITIS NOS Current outpatient prescriptions Medication Sig ??? CEPHALEXIN 500 MG OR TABS 1 tab TID ??? CYSTEX OR PRN ??? CRANBERRY OR QD ??? FLONASE 50 MCG/ACT NA SUSP PRN ??? BENADRYL ALLERGY OR QD ??? [...] Use: Never ??? Alcohol Use: No ROS: Review of systems negative except as stated above. OBJECTIVE: BP 110/70 Temp 96.1 ??F (35.6 ??C) Wt 131 lb 12.8 oz (59.784 kg) GENERAL APPEARANCE: healthy, alert and no distress RESP: lungs clear to auscultation - no rales, rhonchi or wheezes CV: regular rates and rhythm, normal S1 S2, no murmur noted ABDOMEN: soft, nontender, no HSM or masses and bowel sounds normal BACK: No CVA tenderness SKIN: no suspicious lesions or rashes ASSESSMENT: Lower, uncomplicated urinary tract infection. PLAN: As per ordered above - patient has been seen earlier and prescribed ABX UC pending Recommended establishing primary care and referral to urologist Drink plenty of fluids. Prevention and treatment of UTI's discussed.Signs and symptoms of pyelonephritis mentioned. Follow up with primary care physician if not improving documented in this encounter Nursing Notes 12/24/2008 9:15 AM CDT >> MYA FOOTE Sat December 24, 2008 9:35 AM Jacque Sierra presents for UTI sxs.Pt was seen this morning in a medical facility and dx with a UTI.Pt was given cephalexin. Pt c/o severe pain and the medical facility in [place] would not give her anything for pain. Pt has a hx of multiple UTIs. Initial BP 110/70 Temp 96.1 ??F (35.6 ??C) Wt 131 lb 12.8 oz (59.784 kg) Estimated Body mass index is 21.44 kg/(m^2) as calculated from: Height of 5' 5.75 (1.67 m) as of 01/16/06 Weight of 131 lb 12.8 oz (59.784 kg) as of this encounter. BP completed using cuff size: regular Mya Foote RN documented in this encounter Plan of Treatment Not on filedocumented as of this encounter Procedures Procedure Name Priority Date/Time Associated Comments Diagnosis HCL CULTURE, URINE Routine 12/24/2008 10:13 UTI (Urinary Tract Results for this AM CDT Infection) procedure are i n the results section. HCL URINALYSIS WITH Routine 12/24/2008 9:51 AM UTI (Urinary Tr act Results for this MICROSCOPIC CDT Infection) procedure are i n the results section. documented in this encounter Results URINE CULTURE (12/24/2008 10:13 AM CDT) [facility] Method Time Signature Specimen Unspecified JELM Description Urine [facility] Culture Micro No growth [facility] Report status FINAL JELM 12/25/2008 [facility] Specimen Anatomical Collection Method Collection Time Receive d Time (Source) Location / / Volume Laterality 12/24/2008 10:13 12/24/2008 AM CDT 10:17 AM CDT Christopher Mcelroy PA-C LABORATORY Performing Organization Address City/State/ZIP Code Phon e Number [facility] [address] [address] [facility] (ABNORMAL) UA WITH MICRO (12/24/2008 9:51 AM CDT) Component Value Ref Test Analysis Performed At [facility] gist Range Method Time Signature Color Urine [place] [facility] Unable to assay due to interfering substance [facility] Appearance Urine Slightly Cloudy [facility] NO DIPSTICK DONE DUE TO COLOR [facility] Glucose Urine Unable to assay NEG [facility] due to mg/dL [facility] substance (A) Bilirubin Urine Unable to assay NEG [facility] due to [facility] substance (A) Ketones Urine Unable to assay NEG [facility] due to mg/dL [facility] substance (A) Specific [place] Unable to assay 1.003 - [facility] Urine due to 1.035 [facility] substance pH Urine Unable to assay 5.0 - [facility] due to 7.0 pH [facility] substance Protein Albumin Unable to assay NEG [facility] Urine due to mg/dL [facility] substance (A) Urobilinogen Unable to assay 0.2 - [facility] Urine due to 1.0 [facility] interfering EU/dL [facility]IC LAB substance Nitrite Urine Unable to assay NEG [facility] due to [facility] substance (A) Blood Urine Unable to assay NEG [facility] due to [facility] substance (A) Leukocyte Unable to assay NEG [facility] Esterase Urine due to [facility] substance (A) Source Midstream Urine [facility] WBC Urine 5-10 0 - 2 [facility] Unable to assay due to interfering substance (A) /HPF [facility] RBC Urine 2-5 0 - 2 [facility] Unable to assay due to interfering substance (A) /HPF [facility] Squamous EPI Few FEW /LPF [facility] Unable to assay due to interfering substance [facility] Bacteria Urine Few NEG /HPF [facility] Unable to assay due to interfering substance (A) [facility] Specimen Anatomical Collection Method Collection Time Receive d Time (Source) Location / / Volume Laterality 12/24/2008 9:51 AM 9:55 CDT AM CDT Christopher Mcelroy PA-C LABORATORY Performing Organization Address City/State/ZIP Code Phon e Number [facility] [address] [place] [address] [facility] documented in this encounter Visit Diagnoses Diagnosis UTI (urinary tract infection) - Primary Urinary tract infection, site not specif ied documented in this encounter Care Teams Bowling Ball Patcher Relationship Specialty Start Date End Date Edwige Hernandez MD PCP - General 09/19/01 08/27/12 documented as of this encounter
--- OUTSIDE RECORDS SUMMARY | 2022-04-24 09:32 | XMS_ITS | Encounter Summary ---
:1985 Author Organization [place] Address [address] [place] [address] Care Team Providers Name Role Phone Edwige Hernandez MD Primary Care Provider Encounter Details Date Type Department Care Team Description 12/24/2004 Historic Results INTERFACED REPORT Md Assigned, In Er Social History Tobacco Use Types Packs/Day Years Used Date Never Smoker Alcohol Use Standard Drinks/Week Comments No 0 (1 standard drink = 0.6 oz pure alcoho l) Sex Assigned at Date Recorded Not on file documented as of this encounter Plan of Treatment Not on filedocumented as of this encounter Procedures Procedure Name Priority Date/Time Associated Comments Diagnosis WET PREPARATION Routine 12/24/2004 11:35 Results for this PM CDT procedure are i n the results section. NEISSERIA GONORRHOEAE Routine 12/24/2004 11:35 Re sults for this PCR PM CDT procedure are i n the results section. CHLAMYDIA TRACHOMATIS Routine 12/24/2004 11:35 Re sults for this PCR PM CDT procedure are i n the results section. HEMOGRAM DIFFERENTIAL STAT 12/24/2004 10:00 Re sults for this AND PLATELET PM CDT procedure are i n the results section. BASIC METABOLIC PANEL STAT 12/24/2004 10:00 Re sults for this PM CDT procedure are i n the results section. HCG QUALITATIVE URINE STAT 12/24/2004 9:00 PM Results for this CDT procedure are i n the results section. UA MACROSCOPIC WITH STAT 12/24/2004 9:00 PM Re sults for this REFLEX TO MICRO CDT procedure ar e in the results section. URINE MICROSCOPIC Routine 12/24/2004 9:00 PM Resu lts for this EXAM CDT procedure are i n the results section. URINE CULTURE Routine 12/24/2004 9:00 PM Results for this CDT procedure are i n the results section. documented in this encounter Results Chlamydia trachomatis PCR (12/24/2004 11:35 PM CDT) Component Value Ref Test Analysis Performed At [facility] Range Method Time Signature Specimen Cervical MISYS Description Chlamydia Negative for C. MISYS Trachomatis PCR trachomatis rRNA by skein straightener mediated amplification. Comment: A negative result by skein straightener medi ated amplification does not preclude the presence of C. trachomatis infection be cause results are dependent on proper and adequate collection, absence of inh ibitors, and sufficient rRNA to be detected. Specimen Anatomical Collection Method Collection Time Receive d Time (Source) Location / / Volume Laterality 12/24/2004 11:35 12/24/2004 PM CDT 11:43 PM CDT In Er Assigned LAB - MICRO GENERAL ORDERABL ES Performing Organization Address City/[facility] Code Phon e Number MISYS Neisseria gonorrhoeae PCR (12/24/2004 11:35 PM CDT) [facility] Method Time Signature Specimen Cervical MISYS Descrip N Gonorrhea Negative for N. MISYS PCR gonorrhoeae rRNA by skein straightener mediated amplification. Comment: A negative result by skein straightener medi ated amplification does not preclude the presence of N. gonorrhoeae infection be cause results are dependent on proper and adequate collection, absence of inh ibitors, and sufficient rRNA to be detected. Specimen Anatomical Collection Method Collection Time Receive d Time (Source) Location / / Volume Laterality 12/24/2004 11:35 12/24/2004 PM CDT 11:43 PM CDT In Er Assigned LAB - MICRO GENERAL ORDERABL ES Performing Organization Address [facility]/ZIP Code Phon e Number MISYS Wet prep (12/24/2004 11:35 PM CDT) [facility] Method Time Signature Specimen Vagina MISYS Description Micro Report FINAL [id number] MISYS Status Wet Prep No Trichomonas MISYS seen Comment: No yeast seen No clue cells seen Specimen Anatomical Collection Method Collection Time Receive d Time (Source) Location / / Volume Laterality 12/24/2004 11:35 12/24/2004 PM CDT 11:43 PM CDT In Er Assigned LAB - MICRO GENERAL ORDERABL ES Performing Organization Address [facility]/ZIP Code Phon e Number MISYS (ABNORMAL) Hemogram differential and platelet (12/24/2004 10:00 PM CDT) Patholo gist Method Time Signature MCV 92 78 - 100 MISYS fl MCH 31.2 26.5 - MISYS 33.0 pg MCHC 34.0 32.0 - MISYS 36.0 g/dL RDW 11.7 10.0 - MISYS 15.0 % WBC 10.7 4.0 - MISYS 11.0 10e9/L RBC Count 4.52 3.8 - 5.2 MISYS 10e12/L Hemoglobin 14.1 11.7 - MISYS 15.7 g/dL Hematocrit 41.6 35.0 - MISYS 47.0 % % Neutrophils 74 40 - 75 % MISYS % Lymphocytes 17 (L) 20 - 48 % MISYS % Monocytes 6 0 - 12 % MISYS % Eosinophils 3 0 - 6 % MISYS % Basophils 0 0 - 2 % MISYS Platelet Count 267 150 - 450 MISYS 10e9/L Absolute 7.9 1.6 - 8.3 MISYS Neutrophil 10e9/L Absolute 1.9 0.8 - 5.3 MISYS Lymphocytes 10e9/L Absolute 0.7 0.0 - 1.3 MISYS Monocytes 10e9/L Absolute 0.3 0.0 - 0.7 MISYS Eosinophils 10e9/L Absolute 0.0 0.0 - 0.2 MISYS Basophils 10e9/L Diff Method Automated MISYS Method Specimen Anatomical Collection Method Collection Time Receive d Time (Source) Location / / Volume Laterality 12/24/2004 10:00 12/24/2004 9:43 PM CDT PM CDT Randy Malave MD LAB - BLOOD ORDERABLES Performing Organization Address City/State/ZIP Code Phon e Number MISYS Basic metabolic panel (12/24/2004 10:00 PM CDT) P athologist Signature Sodium 141 133 - 144 MISYS mmol/L Potassium 3.7 3.4 - 5.3 MISYS mmol/L Chloride 101 94 - 109 MISYS mmol/L Carbon Dioxide 29 20 - 32 MISYS mmol/L Glucose 93 60 - 110 MISYS mg/dL Urea Nitrogen 11 5 - 24 MISYS mg/dL Creatinine 0.90 0.60 - MISYS 1.30 mg/dL GFR Estimate >80 >60 MISYS mL/min/1.7 m2 GFR Estimate If >80 >60 MISYS Black mL/min/1.7 m2 Calcium 9.3 8.5 - 10.4 MISYS mg/dL Anion Gap 11 6 - 17 MISYS mmol/L Specimen Anatomical Collection Method Collection Time Receive d Time (Source) Location / / Volume Laterality 12/24/2004 10:00 12/24/2004 9:43 PM CDT PM CDT Randy Malave MD LAB - BLOOD ORDERABLES Performing Organization Address City/[facility]/ZIP [facility] [place] [place] Phon e Number MISYS (ABNORMAL) UA macroscopic with reflex to micro (12/24/2004 9:00 PM CDT) [facility] gist Method Time Signature Source Midstream MISYS Urine Color Urine Yellow MISYS Appearance Urine Clear MISYS Glucose Urine Negative NEG mg/dL MISYS Bilirubin Urine Negative NEG MISYS Ketones Urine Negative NEG mg/dL MISYS Specific [place] 1.010 1.001 - MISYS Urine 1.035 Blood Urine Large (A) NEG MISYS pH Urine 7.0 5.0 - 7.0 MISYS pH Protein Albumin Negative NEG mg/dL MISYS Urine Urobilinogen 0.2 0.2 - 1.0 MISYS Urine EU/dL Nitrite Urine Negative NEG MISYS Leukocyte Moderate (A) NEG MISYS Esterase Urine Specimen Anatomical Collection Method Collection Time Receive d Time (Source) Location / / Volume Laterality 12/24/2004 9:00 PM 5 9:00 CDT PM CDT Andres Perkins MD LAB - URINE ORDERABLES Performing Organization Address [facility] Phon e Number MISYS HCG qualitative urine (12/24/2004 9:00 PM CDT) athologist Signature HCG Qual Urine Negative NEG MISYS Specimen Anatomical Collection Method Collection Time Receive d Time (Source) Location / / Volume Laterality 12/24/2004 9:00 PM 5 9:00 CDT PM CDT Andres Perkins MD LAB - URINE ORDERABLES Performing Organization Address [facility] Phon e Number MISYS (ABNORMAL) Microscopic exam urine (12/24/2004 9:00 PM CDT) P athologist Signature WBC Urine 10-25 (A) 0 - 2 /HPF MISYS Comment: WBC'S CLUMPS PRESENT RBC Urine 5-10 (A) 0 - 2 /HPF MISYS Bacteria Urine Few (A) NEG /HPF MISYS Specimen Anatomical Collection Method Collection Time Receive d Time (Source) Location / / Volume Laterality 12/24/2004 9:00 PM 5 9:47 CDT PM CDT Andres Perkins MD LAB - URINE ORDERABLES Performing Organization Address City/State/[facility] Code Phon e Number MISYS Urine culture (12/24/2004 9:00 PM CDT) Component Value Ref Test Analysis Performed At [facility] gist Range Method Time Signature Specimen Midstream Urine MISYS Description Culture Micro >100,000 MISYS colonies/mL Enterobacter aerogenes Comment: Sent final report to [facility] printer on [id number] / cd Micro Report Status FINAL [id number] MISYS Specimen Anatomical Collection Method Collection Time Receive d Time (Source) Location / / Volume Laterality 12/24/2004 9:00 PM 5 9:58 CDT PM CDT Organism Antibiotic Method Susceptibility >100,000 colonies/ml enterobacter aerogenes (yanick) Ampicillin 8 Resistant Comment: This is a therapeutic interp retation correction made by the AF[employer] Advanced Expert System. >100,000 colonies/ml enterobacter Amoxicillin/Clav >=32 Resistant aerogenes (yanick) >100,000 colonies/ml enterobacter Ceftriaxone <=1 Susceptible aerogenes (yanick) >100,000 colonies/ml enterobacter Cefazolin >=64 Resistant aerogenes (yanick) >100,000 colonies/ml enterobacter Ciprofloxacin <=0.25 Susceptible aerogenes (yanick) >100,000 colonies/ml enterobacter Nitrofurantoin 64 Intermediate aerogenes (yanick) >100,000 colonies/ml enterobacter Gentamicin <=1 Susceptible aerogenes (yanick) >100,000 colonies/ml enterobacter Trimethoprim/Sulfamethoxazole <=1/19 Susceptible aerogenes (yanick) >100,000 colonies/ml enterobacter Ticarcillin <=8 Susceptible aerogenes (yanick) >100,000 colonies/ml enterobacter Ticarcillin/Clav <=8 Susceptible aerogenes (yanick) >100,000 colonies/ml enterobacter Tobramycin <=1 Susceptible aerogenes (yanick) In Er Assigned LAB - MICRO GENERAL ORDERABL ES Performing Organization Address City/[facility] Phon e Number MISYS documented in this encounter Visit Diagnoses Not on filedocumented in this encounter Care Teams Body Art Technician Relationship Specialty Start Date End Date Edwige Hernandez MD PCP - General 09/19/01 08/27/12 documented as of this encounter
--- OUTSIDE RECORDS SUMMARY | 2022-04-24 09:32 | XMS_ITS | Encounter Summary ---
:1985 Author Organization [place] Address [address] [place] [address]. [place] [address] Care Team Providers Name Role Phone Edwige Hernandez MD Primary Care Provider Reason for Referral Consultation (Routine) - Closed Specialty Diagnoses / Procedures Referred By Contact Refer red To Contact Dermatology Diagnoses Benign neoplasm of skin of trunk, except scrotum Edwige Hernandez MD [facility] [address] [address] Referral ID Status Reason Start Date Expiration Date Visits Requ ested Visits Authorized [id number] Closed 11/21/2005 08/03/2011 1 1 Reason for Visit Reason Comments Vomiting Weight Problem Mole Encounter Details Date Type Department Care Team Description 11/21/2005 Office Visit [facility] Edwige Hernandez, VIRAL ENTERITIS NOS (Primary Dx); Physicians CONTRACEPTIVE MANGMT NEC; [address] BENIGN ANDI [address] TRUN[address] PHYS [place], [place] [address] [address] [address] [place] [address] Social History Tobacco Use Types Packs/Day Years Used Date Never Smoker Alcohol Use Standard Drinks/Week Comments No 0 (1 standard drink = 0.6 oz pure alcoho l) Sex Assigned at Date Recorded Not on file documented as of this encounter Last Filed Vital Signs Vital Sign Reading Time Taken Comments Blood Pressure 120/72 11/21/2005 2:15 PM CDT Pulse 72 11/21/2005 2:15 PM CDT Temperature 36.6 ??C (97.8 ??F) 11/21/2005 2:15 PM CDT Respiratory Rate - - Oxygen Saturation - - Inhaled Oxygen Concentration - - Weight 63 kg (139 lb) 11/21/2005 2:15 PM CDT Height 167 cm (5' 5.75) 11/21/2005 2:15 PM CDT Body Mass Index 22.61 11/21/2005 2:15 PM CDT documented in this encounter Progress Notes Edwige Hernandez MD - 11/21/2005 2:35 PM CDT (S) Jacque Sierra is a 20 year old female with complaint of gastrointestinal symptoms of cramping, diarrhea, nausea, vomiting and fever for 1-2 days. No blood in stool. Feels better today, keeping food down, tow crackers and some pedialyte and water. Still having some loose stools today, had it 3 times There is no problem list on file for this patient. Past Medical History Diagnosis Date ??? ALLERGIC RHINITIS NOS Family History Problem Relation ??? Diabetes Father type 2 ??? Depression Mother ??? Respiratory Brother asthma ??? Respiratory Mother asthma History Social History ??? Marital Status: Single Spouse Name: N/A Number of Children: N/A ??? 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 Tobacco Use: Never ??? Alcohol Use: No ??? Drug Use: No ??? Sexually Active: Not Currently Other Topics Concern ??? Caffeine No ??? Weight Concern Yes gained 20 pounds on control ??? Exercise Yes ??? Seat Belt Yes Social History Narrative ??? No narrative on file Current outpatient prescriptions prior to 11/21/05: FLONASE INHA 50 MCG/DOSE NA 2 SPRAYS IN EACH NOSTRIL QD (Once per day) Allergies Allergen Reactions ??? Penicillins ??? Quinolones Levaquin - hives Immunization History Name Date(s) Administered ??? DPT 1985, 1985, 02/26/1985, 07/20/1986, 02/05/1990 ??? HIB 07/20/1986 ??? Hepatitis B 03/14/1997, 02/12/2001 ??? MMR 11/23/1985, 03/14/1997 ??? OPV 1984, 1984, 07/20/1986, 02/05/1990 ??? td (adult) 03/14/1997 (O) Physical exam reveals the patient appears well. Hydration status: well hydrated. Cv:rrr Lungs:clear Heent: normal Skin:clear Abdomen: abdomen is soft without significant tenderness, masses, organomegaly or guarding. (A) Viral Gastroenteritis (P) I have recommended small amounts clear fluids frequently, soups, juices, water and advance diet as tolerated. Return office visit if symptoms persist or worsen; I have alerted the patient to call if high fever, dehydration, marked weakness, fainting, increased abdominal pain, blood in stool or vomit. V25.09 CONTRACEPTIVE MANGMT NEC Note: pt gained 20# on OTC and up set by this, [facility]. Plan: JODI 28 3-0.03 MG OR TABS Try jodi, due for pap, given 2 months, Discussed medication in detail including dosing, side effects, and interactions. Pt was told to follow-up in 3-4 weeks for re-check 216.5 BENIGN ANDI SKIN TRUNK Note: pt with grwoing mole on left shoulder, worrisome for skin cancer, i offered to take off tonight but pt preferred dermatology, has waited 2 years can wait 1 more month Plan: CONSULT TO DERMATOLOGY documented in this encounter Nursing Notes 11/21/2005 2:15 PM CDT >> LUL HELLER 11/21/2005 2:19 pm Pt presents with an illness characterized by fever, nausea, vomiting, generalized abdominal pain and diarrhea. Symptoms began 2 days ago and are stable since that time. Also talk about weight gain from her b/c meds. She has a mole on her left shoulder that has grown, is tender, and is changing color. Questioned patient about current smoking habits. Pt. has never smoked. CLASSIFICATION OF OVERWEIGHT AND OBESITY BY BMI Obesity Class BMI(kg/m2) Underweight < 18.5 Normal 18.5-24.9 Overweight 25.0-29.9 OBESITY I 30.0-34.9 II 35.0-39.9 EXTREME OBESITY III >40 Patient's BMI Body mass index is 22.61 kg/(m^2). Http://hin.nhlbi.nih.gov/menuplanner/menu.cgi documented in this encounter Plan of Treatment Not on filedocumented as of this encounter Procedures Procedure Name Priority Date/Time Associated Comments Diagnosis ADULT DERMATOLOGY Routine 03/26/2006 Benign Andi Skin REFERRAL Trunk ZZCL AFF Routine 11/21/2005 2:51 PM Viral Enteritis Nos Re sults for this HEMOGRAM/PLATELET CDT procedure are in the results section. HC VENOUS COLLECTION Routine 11/21/2005 2:41 PM Viral Enteriti s Nos CDT documented in this encounter Results CONSULT TO DERMATOLOGY (03/26/2006) Narrative This result has an attachment that is no t available. Edwige Hernandez MD REFERRAL HEMOGRAM/PLATELET (11/21/2005 2:51 PM CDT) P athologist Signature WBC 6.3 4.3 - 11 [facility] thous/CU.MM RBC Count 4.86 4.2 - 5.4 [facility] Thous/CU.MM Hemoglobin 14.7 12 - 16 [facility] GM/DL Hematocrit 43.6 38 - 47 % [facility] MCV 89.8 82 - 100 FL [facility] MCH 30.3 26 - 33 pg [facility] MCHC 33.7 31 - 36 [facility] PERCENT RDW 13.3 % [facility] Platelet Count 214 150 - 375 [facility] 10^9/L Edwige Hernandez MD LABORATORY Performing Organization Address City/State/ZIP Code Phon e Number [facility] documented in this encounter Visit Diagnoses Diagnosis Intestinal infection due to other organi sm, not elsewhere classified - Primary Other general counseling and advice for contraceptive management Benign neoplasm of skin of trunk, except scrotum documented in this encounter Care Teams C D Still Operator Relationship Specialty Start Date End Date Edwige Hernandez MD PCP - General 09/19/01 08/27/12 documented as of this encounter
--- OUTSIDE RECORDS SUMMARY | 2022-04-24 09:32 | XMS_ITS | Encounter Summary ---
:1985 Author Organization [place] Address [facility] access hospital[facility] [place] [address] Care Team Providers Name Role Phone Edwige Hernandez MD Primary Care Provider Reason for Visit Reason Onset Date Comments Results 01/23/2006 Encounter Details Date Type Department Care Team Description 01/23/[address] [facility] ysicians Edwige Hernandez MD Results [address] [facility] PHYS [address] [facility] [address] [address] [place], [place] [id number] (Wo rk) Social History Tobacco Use Types Packs/Day Years Used Date Never Smoker Alcohol Use Standard Drinks/Week Comments No 0 (1 standard drink = 0.6 oz pure alcoho l) Sex Assigned at Date Recorded Not on file documented as of this encounter Miscellaneous Notes Telephone Encounter - Edwige Hernandez MD - 01/23/2006 6:30 PM CDT Pt informed again. Telephone Encounter - Edvin Arias - 01/23/2006 5:02 PM CDT Pt informed, she would like you to call her tonight After 5:30 please call [phone] Telephone Encounter - Edwige Hernandez MD - 01/23/2006 3:58 PM CDT Ascus pap, Needs 6 month f/u pap here, NEGATIVE hpv (virus) left message for pt to call clinic documented in this encounter Plan of Treatment Not on filedocumented as of this encounter Visit Diagnoses Not on filedocumented in this encounter Care Teams Sulfide Head Operator Relationship Specialty Start Date End Date Edwige Hernandez MD PCP - General 09/19/01 08/27/12 documented as of this encounter
--- OUTSIDE RECORDS SUMMARY | 2022-04-24 09:32 | XMS_ITS | Encounter Summary ---
:1985 Author Organization [place] Address [address] [place] [address] Care Team Providers Name Role Phone Edwige Hernandez MD Primary Care Provider Reason for Visit Reason Comments Allergic Rhinitis acute viral URI most likely Encounter Details Date Type Department Care Team Description 10/01/2003 Abstract M [facility] Elena Brewster MD [facility] [address] [facility] [address] [address] [place], [place] [phone] Social History Tobacco Use Types Packs/Day Years Used Date Never Smoker Alcohol Use Standard Drinks/Week Comments No 0 (1 standard drink = 0.6 oz pure alcoho l) Sex Assigned at Date Recorded Not on file documented as of this encounter Progress Notes 10/01/2003 11:59 PM EXTENSION WORK DIRECTOR Afrin NS/Flonase NS as rx supportive cares Robitussin AC prn f/u with PMD 3-5 days This information has been abstracted from the urgent care chart. documented in this encounter Plan of Treatment Not on filedocumented as of this encounter Visit Diagnoses Not on filedocumented in this encounter Care Teams Crop Farm Helper Relationship Specialty Start Date End Date Edwige Hernandez MD PCP - General 09/19/01 08/27/12 documented as of this encounter
--- OUTSIDE RECORDS SUMMARY | 2022-04-24 09:32 | XMS_ITS | Encounter Summary ---
:1985 Author Organization [place] Address [address] [place] [address] Care Team Providers Name Role Phone Edwige Hernandez MD Primary Care Provider Encounter Details Date Type Department Care Team Description 04/21/2002 Orders Only [facility] Cee Rowell [facility] Jhon Lopez MD EXAM (Prim tanisha Dx) Laboratory [address] [place] [address] Social History Tobacco Use Types Packs/Day Years Used Date Never Assessed Sex Assigned at Date Recorded Not on file documented as of this encounter Progress Notes 04/21/2002 11:59 PM CDT Addended by: GABY FERNANDEZ on: 08/06/2002,1:26 PM Modules accepted: Order Summary documented in this encounter Plan of Treatment Not on filedocumented as of this encounter Visit Diagnoses Diagnosis Routine infant or child health check - P rimary documented in this encounter Care Teams Tar Distributor Operator Relationship Specialty Start Date End Date Edwige Hernandez MD PCP - General 09/19/01 08/27/12 documented as of this encounter
--- OUTSIDE RECORDS SUMMARY | 2022-04-24 09:32 | XMS_ITS | Encounter Summary ---
:1985 Author Organization [place] Address [address] [place] [address] Care Team Providers Name Role Phone Edwige Hernandez MD Primary Care Provider Reason for Referral - Closed Specialty Diagnoses / Procedures Referred By Contact Refer red To Contact Diagnoses Ganglion, unspecified Toni Hoffman MD [address] [place] [address] Referral ID Status Reason Start Date Expiration Date Visits Requ ested Visits Authorized [id number] Closed 01/23/2004 08/03/2011 1 1 Reason for Visit Reason Comments RECHECK Encounter Details Date Type Department Care Team Description 01/23/2004 Office Visit [facility] Yasmin GANGLION N [facility] [place] Toni Palomares MD (Primary Dx) [address] [address] [place], [place] [phone] (Wo rk) [address] [phone] Social History Tobacco Use Types Packs/Day Years Used Date Never Smoker Alcohol Use Standard Drinks/Week Comments No 0 (1 standard drink = 0.6 oz pure alcoho l) Sex Assigned at Date Recorded Not on file documented as of this encounter Last Filed Vital Signs Vital Sign Reading Time Taken Comments Blood Pressure 100/70 01/23/2004 4:00 PM CDT Pulse - - Temperature - - Respiratory Rate - - Oxygen Saturation - - Inhaled Oxygen Concentration - - Weight 59.9 kg (132 lb) 01/23/2004 4:00 PM CDT Height - - Body Mass Index 20.99 01/04/2003 4:00 PM CDT documented in this encounter Progress Notes 01/23/2004 4:00 PM CDT pt is a 18 year old female who is seen here to day with c/o lump on his rt hand since <1 yr,has not noticed any change in size.Has pain when she puts pressure on it.no discharge from the lump. pt had ganglion cyst removed from the same spot 8-9 yrs ago. Meds as of 01/23/2004: FLONASE INHA 50 MCG/DO SE NA 2 SPRAYS IN EACH NOSTRIL QD (Once per day) ROS: MS:as above Blood pressure 100/70, weight 132 lbs (59.875 kg), last menstrual period 01/16/2004. Alert and oriented. RT HAND-small soft lump felt on dorsal aspect of the rt hand. mild tenderness,no redness. ASSESSMENT AND PLAN: 727.43 GANGLION NO S (primary encounter diagnosis) Note: explained about the condition Plan: CONSULT ORTHOPEDIC GENE RAL documented in this encounter Nursing Notes 01/23/2004 4:00 PM CDT >> GREGG GRAVES 01/23/2004 4:08 pm Painful lump on right hand for years. Had ganglion cyst removed about 8 years ago. documented in this encounter Plan of Treatment Not on filedocumented as of this encounter Visit Diagnoses Diagnosis Ganglion, unspecified - Primary documented in this encounter Care Teams Seamer Panty Hose Relationship Specialty Start Date End Date Edwige Hernandez MD PCP - General 09/19/01 08/27/12 documented as of this encounter
--- OUTSIDE RECORDS SUMMARY | 2022-04-24 09:32 | XMS_ITS | Encounter Summary ---
:1985 Author Organization [place] Address [facility]0 [facility] [place] [address] Care Team Providers Name Role Phone Edwige Hernandez MD Primary Care Provider Reason for Visit Reason Onset Date Comments Refill Request 01/15/2006 Encounter Details Date Type Department Care Team Description 01/15/2006 Refill [facility] ysicians Edwige Hernandez MD Refill Request [address] [facility] [address] [facility] [place] [phone] [place] [address] (Wo rk) Social History Tobacco Use Types Packs/Day Years Used Date Never Smoker Alcohol Use Standard Drinks/Week Comments No 0 (1 standard drink = 0.6 oz pure alcoho l) Sex Assigned at Date Recorded Not on file documented as of this encounter Miscellaneous Notes Telephone Encounter - Sofía Laughlin - 01/15/2006 2:34 PM CDT Received refill request for [facility] for pt's pharmacy. Pt last pap done on 01/04/03. Faxed back denied needs physical. documented in this encounter Plan of Treatment Not on filedocumented as of this encounter Visit Diagnoses Not on filedocumented in this encounter Care Teams Licensed Retail Supervisor Relationship Specialty Start Date End Date Edwige Hernandez MD PCP - General 09/19/01 08/27/12 documented as of this encounter
--- OUTSIDE RECORDS SUMMARY | 2022-04-24 09:32 | XMS_ITS | Clinical Summary ---
:1985 Author Organization [place] Address [address] [place] [address] Care Team Providers Name Role Phone Andres North MD Primary Care Provider [phone] Allergies Active Allergy Reactions Severity Noted Date Comments Bactrim 04/04/2009 Penicillins 01/04/2003 Quinolones 01/23/2004 Levaquin - hive s Sulfa Drugs GI Disturbance 07/05/2006 Medications Medication Sig Dispensed Refills Start Date End Date Status ipratropium - Take 1 vial (3 mLs) 90 mL 0 03/28/2022 Active albuterol 0.5 mg/2.5 by nebulization mg/3 mL (DUONEB) every 6 hours as 0.5-2.5 (3) MG/3ML needed for shortness neb solution of breath / dyspnea or wheezing Encounters Date Type Specialty Care Team Description 03/28/2022 Emergency EMERGENCY MEDICINE Mercedes Foster MD Severe asthma with exacerbation, u nspecified whether persist ent 03/28/2022 Travel from Last 3 Months Immunizations Name Administration Dates Next Due HepB 02/12/2001, 03/14/1997 Hib (PRP-T) 07/20/1986 Historical DTP/aP 02/05/1990, 07/20/1986, 02/26/1985, 09/1984, 1984 MMR 03/14/1997, 11/23/1985 OPV, trivalent, live 02/05/1990, 07/20/1986, 1984, TD (ADULT, 7+) 03/14/1997 Family History Medical History Relation Comments Respiratory Brother asthma Diabetes Father type 2 Depression Mother Respiratory Mother asthma Relation Status Comments Brother Father Mother Social History Tobacco Use Types Packs/Day Years [...] was confirmed or suspected to have Coronavirus/COVID-19? Last Filed Vital Signs Vital Sign Reading Time Taken Comments Blood Pressure 164/101 03/28/2022 4:30 PM CDT Pulse 105 03/28/2022 4:30 PM CDT Temperature 36.4 ??C (97.6 ??F) 03/28/2022 4:26 PM CDT Respiratory Rate 26 03/28/2022 11:32 AM CDT Oxygen Saturation 92% 03/28/2022 4:45 PM CDT Inhaled Oxygen Concentration - - Weight 69.4 kg (153 lb) 03/15/2011 3:35 PM CDT Height 167 cm (5' 5.75) 01/16/2006 3:00 PM CDT Body Mass Index 24.88 01/16/2006 3:00 PM CDT Plan of Treatment Health Maintenance Due Date Last Done Comments ADVANCE CARE PLANNING 1985 ANNUAL REVIEW OF HM ORDERS 1984 ASTHMA ACTION PLAN 1984 ASTHMA CONTROL TEST 1984 HEPATITIS C SCREENING 2002 PREVENTIVE CARE VISIT 01/16/2007 01/16/2006, 01/04/2003 PAP 01/22/2009 01/22/2006, 01/04/2003, 01/07/2002 PHQ-2 (once per calendar 08/04/2021 year) INFLUENZA VACCINE (#1) 2022 08/03/2021, 05/30/2020, 08/06/2019, Additional history exists DTAP/TDAP/TD IMMUNIZATION 04/20/2024 04/20/2014, 05/01/2009 , (9 - Td or Tdap) 03/14/1997, Additional history exists IPV IMMUNIZATION Completed 02/05/1990, 07/20/1986, 1984, Additional history exists HIV SCREENING Completed 01/04/2003 HEPATITIS B IMMUNIZATION Completed 05/01/2009, 08/04/2007, 02/12/2001, Additional history exists COVID-19 Vaccine Completed 09/21/2021, 12/27/2020, 12/08/2020 MENINGITIS IMMUNIZATION Aged Out No longe r eligible based on patient 's age to complete this topic Pneumococcal Vaccine: Aged Out No longer eligible Pediatrics (0 to 5 Years) based on patient's age and At-Risk Patients (6 to to co mplete this topic 64 Years) Procedures Procedure Name Priority Date/Time Associated Comments Diagnosis XR CHEST 2 VIEWS STAT 03/28/2022 1:18 PM Resul ts for this CDT procedure are i n the results section. INFLUENZA A/B & STAT 03/28/2022 12:03 Results for this SARS-COV2 PCR PM CDT procedure are in MULTIPLEX the results section. CBC WITH PLATELETS & STAT 03/28/2022 11:46 Res ults for this DIFFERENTIAL AM CDT procedure are i n the results section. CBC WITH PLATELETS AND STAT 03/28/2022 11:46 R esults for this DIFFERENTIAL AM CDT procedure are i n the results section. BLOOD GAS VENOUS WITH STAT 03/28/2022 11:46 Re sults for this OXYHEMOGLOBIN AM CDT procedure are in the results section. HCG QUALITATIVE STAT 03/28/2022 [...] procedure are i n the results section. from Last 3 Months Results Chest XR, PA & LAT (03/28/2022 1:18 PM CDT) Anatomical Region Laterality Modality Chest Digital Radiography Specimen (Source) Anatomical Location Collection Method / Collectio n Time Received Time / Laterality Volume Impressions 03/28/2022 1:21 PM CDT IMPRESSION: No infiltrate, pleural effusion or pneumothorax. The cardiac and mediastinal silhouettes are normal. MATI R OLAMIDE, MD Narrative 03/28/2022 1:21 PM CDT XR [...] Time Signature Influenza A Negative Negative 03/28/2022 LABORATORY PCR 12:54 PM CDT Influenza B Negative Negative 03/28/2022 [facility] LABORAT[facility] PCR 12:54 PM CDT RSV PCR Negative Negative 03/28/2022 LABORATORY 12:54 PM CDT SARS CoV2 PCR [...] the Xpert Xpress CoV2/Flu/RSV Assay on the [employer] GeneXpert Instrument. This test should be ordered [...] management. This test was validated by the [facility] [employer] These laboratories are certified under the Clinical Laboratory Improvement Amendments of 198 8 (CLIA-88) as qualified to perform high complexity laboratory testing. Mercedes Foster MD LAB - MICRO GENERAL ORDERABL ES Performing Organization Address City/State/ZIP Code [place] [phone] [facility] [address] [facility], no room number) (ABNORMAL) CBC with platelets and differential (03/28/2022 11:46 AM CDT) [facility] gist Method Time Signature WBC Count 5.2 4.0 - 03/28/2022 [facility] LABORAT[facility] 11.0 12:19 PM CDT 10e3/uL RBC Count 4.16 3.80 - 03/28/2022 [facility] LABORATORY 5.20 12:19 PM CDT 10e6/uL Hemoglobin 13.3 11.7 - 03/28/2022 [facility] LABORATORY 15.7 g/dL 12:19 PM CDT Hematocrit 41.3 35.0 - 03/28/2022 [facility] LABORATORY 47.0 % 12:19 PM CDT MCV 99 78 - 100 03/28/2022 [facility] LABORATORY fL 12:19 PM CDT MCH 32.0 26.5 - 03/28/2022 LABORATORY 33.0 pg 12:19 PM CDT MCHC [...] Address City/State/ZIP [place] [phone] Care Lab [address] Lab (1st floor, no room number) Troponin T, High Sensitivity (03/28/2022 11:46 AM CDT) P athologist Signature Troponin T, High <6 <=14 ng/L 03/28/2022 [facility] LABORATOR Y Sensitivity 12:53 PM CDT Specimen Anatomical Collection Method / Collection Time Recei kinga Time (Source) Location / Volume Laterality Blood STRUCTURE OF RIGHT Venipuncture / 03/28/2022 11:46 UPPER LIMB / Unknown AM CDT 12:00 PM CDT Unknown Mercedes Foster MD LAB - BLOOD ORDERABLES Performing Organization Address City/[facility]/ZIP [place] [address] Care Lab [address] Lab (1st floor, no room number) Nt probnp inpatient (03/28/2022 11:46 AM CDT) P athologist Signature N terminal Pro 130 0 - 450 03/28/2022 [facility] LABORATORY BNP Inpatient pg/mL 12:43 PM CDT [...] LAB - BLOOD ORDERABLES Performing Organization Address City/[facility]/ZIP [place] [address] Care Lab [address] Lab (1st floor, no room number) HCG QUALitative (blood) (03/28/2022 11:46 AM CDT) Patholo gist Method Time Signature hCG Serum Negative Negative JEIMY 03/28/2022 [facility] LABORATORY Qualitative 12:32 PM CDT Comment: This test is for screening purp oses. Results should be interpreted along with the clinical picture. Confirmation testing is available if warranted by ordering [id number], HCG Quantitative . Specimen Anatomical Collection Method / Collection Time Recei kinga Time (Source) Location / Volume Laterality Blood STRUCTURE OF RIGHT Venipuncture / 03/28/2022 11:46 UPPER LIMB / Unknown AM CDT 12:00 PM CDT Unknown Mercedes Foster MD LAB - BLOOD ORDERABLES Performing Organization Address City/[facility]/ZIP Code [place] [address] Care Lab [address] Lab (1st floor, no room number) [...] BLOOD ORDERABLES Performing Organization Address [facility] [place] [address] Care Lab [address] Lab (1st floor, no room number) (ABNORMAL) Blood gas venous and oxyhgb (03/28/2022 11:46 AM CDT) Patholo gist Method Time Signature pH Venous 7.40 7.32 - 03/28/2022 [facility] LABORATORY 7.43 12:14 PM CDT pCO2 Venous 43 40 - 50 03/28/2022 [facility] LABORATORY mm Hg 12:14 PM CDT pO2 Venous 44 25 - 47 03/28/2022 [facility] LABORATORY mm Hg 12:14 PM CDT Bicarbonate Venous 27 21 - 28 03/28/2022 [facility] LABORAT ORY mmol/L 12:14 PM CDT FIO2 0 JEIMY 03/28/2022 LABORATORY 12:14 PM CDT Oxyhemoglobin 78 (H) 70 - 75 % 03/28/2022 LABORATORY Venous 12:14 PM CDT Base 1.4 -7.7 - 03/28/2022 LABORATORY Excess/Deficit 1.9 12:14 PM CDT (+/-) mmol/L Specimen Anatomical Collection Method / Collection Time Recei kinga Time (Source) Location / Volume Laterality Blood, venous STRUCTURE OF RIGHT Venipuncture / 03/28/2022 11:46 UPPER LIMB / Unknown AM CDT 12:00 PM CDT Unknown Mercedes Foster MD LAB - BLOOD ORDERABLES Performing Organization Address City/State/ZIP Code [place] [address] Care Lab [address] Lab (1st floor, no room number) (ABNORMAL) Basic metabolic panel (03/28/2022 11:46 AM CDT) Analysis Performed At Patho logist Time Signature Creatinine 0.74 0.51 - 03/28/2022 LABORATORY 0.95 mg/dL 12:31 PM CDT Sodium 139 136 - 145 03/28/2022 LABORATORY mmol/L 12:31 PM CDT Potassium 4.3 3.4 - 5.3 03/28/2022 LABORATORY mmol/L 12:31 PM CDT Urea Nitrogen [...] es age and gender (Hannah et al., NEJ, DOI: 10.1056/YFEXum0963409) Calcium 9.6 8.6 - 10.0 mg/dL 03/28/2022 12:31 PM CDT [facility] LABORAT[facility] Specimen Anatomical Collection Method / Collection Time Recei kinga Time (Source) Location / Volume Laterality Blood STRUCTURE OF RIGHT Venipuncture / 03/28/2022 11:46 UPPER LIMB / Unknown AM CDT 12:00 PM CDT Unknown Mercedes Foster MD LAB - BLOOD ORDERABLES Performing Organization Address City/State/ZIP Code [place] [address] Care Lab [address] Lab (1st floor, no room number) EKG 12 lead (03/28/2022 11:38 AM CDT) Component Value Ref Range Test Analysis Performed Pathologis t Method Time At Signature Systolic Blood mmHg RADIOLOGY Pressure RESULTS Diastolic Blood mmHg RADIOLOGY Pressure RESULTS Ventricular Rate 116 BPM RADIOLOGY RESULTS Atrial Rate 116 BPM RADIOLOGY RESULTS WI Interval 118 ms RADIOLOGY RESULTS QRS Duration 80 ms RADIOLOGY RESULTS QT 330 ms RADIOLOGY RESULTS QTc 458 ms RADIOLOGY RESULTS P [place] 85 degrees RADIOLOGY RESULTS R AXIS 52 degrees RADIOLOGY RESULTS T [place] 1 degrees RADIOLOGY RESULTS Interpretation Sinus tachycardia RADIOLO GY ECG Nonspecific T wave abnormality RESULTS Abnormal ECG No previous ECGs available Confirmed by - EMERGENCY REECE Hope, PHYSICIAN ([id number]), newspaper managing editor DARLENE MOLINA ([id number]) on 03/28/2022 12:52:37 PM Specimen Anatomical Collection Method Collection Time Receive d Time (Source) Location / / Volume Laterality 03/28/2022 11:38 03/28/2022 AM CDT 12:52 PM CDT Mercedes Foster MD ECG ORDERABLES Performing Organization Address City/State/ZIP Code Phon e Number RADIOLOGY RESULTS from Last 3 Months Insurance Payer Benefit Plan / Subscriber ID Effective Phone Address T ype Group Dates [facility] [id number] 2019-Pres [phone] [address] [facility] MA ent [address] [place] [address] [place]Home) S [phone] [place], [place] ([place]) [address] Mansoor Sierra Personal/Family Self [address] [place] ([place] [address] Mansoor Sierra [employer] Party Self 1985 [id number] [place] (Home) S [phone] [place], [place] ([place]) [phone] Care Teams Traffic Supervisor Relationship Specialty Start Date End Date Andres North MD PCP - General Family Practice 08/28/[address], [id number] [place] [address]
--- OUTSIDE RECORDS SUMMARY | 2022-04-24 09:32 | XMS_ITS | Encounter Summary ---
:1985 Author Organization [place] Address [address] [place] [address] Care Team Providers Name Role Phone Edwige eHrnandez MD Primary Care Provider Encounter Details Date Type Department Care Team Description 12/25/2004 Emergency room [facility] [address] [place] [address] Social History Tobacco Use Types Packs/Day Years Used Date Never Smoker Alcohol Use Standard Drinks/Week Comments No 0 (1 standard drink = 0.6 oz pure alcoho l) Sex Assigned at Date Recorded Not on file documented as of this encounter Progress Notes Interface, Elevator Repair Mechanic - 12/25/2004 11:59 PM CDT : 83 CHIEF COMPLAINT: Right lower quadrant pain. HISTORY OF PRESENT ILLNESS: This is a 19-year-old female who presents with right lower quadrant pain. She states it began three days ago, kind of mild in her right lower quadrant, but then tonight about 7:00 o'clock developed more sharp lower quadrant pain with sweating and right back and flank pain as well. She states that just before that she developed a feeling like she had to go to the bathroom frequently and burning with urination, but then that stopped and then she developed more severe pain. She has had a slight cough. No shortness of breath. No chest pain. She has been nauseous, but has not vomited. No vaginal discharge. Her last menstrual period was four days ago which was normal. No fevers. She rates her pain at a 9/10. REVIEW OF SYSTEMS: 10-point review of systems is negative except for what is noted in the HPI. She denies history of or sexually transmitted infection. PAST MEDICAL HISTORY: Significant for a tonsillectomy. MEDICATIONS: None. ALLERGIES: PENICILLIN. SOCIAL HISTORY: She is a smoker. PHYSICAL EXAMINATION: Blood pressure 130/100, pulse 72, respirations 18, temperature 96.6, 02 saturation 100%. She is awake, alert, nontoxic female in no distress. Sclerae nonicteric. Her NECK is supple. LUNGS: Clear. HEART: Regular rate and rhythm. Her ABDOMEN is soft, nontender, she has right lower quadrant tenderness mildly to palpation, no peritoneal signs or guarding, no CVA tenderness. Her exam reveals normal external genitalia. She has scant vaginal discharge, no cervical motion tenderness or uterine tenderness. She has mild right adnexal tenderness, no left adnexal tenderness or masses. No right-sided adnexal masses. Her EXTREMITIES are without cyanosis or edema. SKIN: Without petechiae or rash. She is awake, alert, neurologically no focal deficits. LABORATORY AND RADIOGRAPHIC EXAMINATION: Her wet prep reveals no clue, no yeast, no trich. Her BMP is normal. Her white count is 10.7, hemoglobin 14.1. Urinalysis reveals large blood, moderate leukocyte esterase. test is negative. WBCs have 10-25 in the urine with 5-10 RBCs, a few bacteria. CT scan of the abdomen and pelvis shows no evidence of appendicitis. There is no evidence of inflammatory change, enlargement of the appendix, abscess, free fluid or free air. No evidence of pelvic masses or adenopathy, read by Dr. Penaloza. EMERGENCY DEPARTMENT COURSE: IV access was established. The patient was given 1600 ml of normal saline, 4 mg of Zofran, several doses of IV morphine here in the emergency department. Once we got her CT scan result back, I wrote her a prescription for ciprofloxacin. When she got to the pharmacy she had stated that she was allergic to Levaquin and therefore the pharmacy called. I called in a prescription for Bactrim. She is to return with persistent symptoms. She was discharged in stable condition. Return with fever or vomiting. PROVISIONAL DIAGNOSIS: Urinary tract infection. [id number] _ HARRISON BEAN MD [place]: Document: [id number] [place], [place] Name: MR#: VINCENZO AGUILA [id number] EMERGENCY ROOM ENCOUNTER Page 2 of 2 LCN: KAREN DSC: 12/25/2004 [place], [place] Name: MR#: VINCENZO AGUILA [id number] : Admit Date: Account #: 1985 12/24/2004 [id number] Doctor: HARRISON BEAN MD EMERGENCY ROOM ENCOUNTER Page 1 of 2 documented in this encounter Plan of Treatment Not on filedocumented as of this encounter Visit Diagnoses Not on filedocumented in this encounter Care Teams It Software Engineer Relationship Specialty Start Date End Date Edwige Hernandez MD PCP - General 09/19/01 08/27/12 documented as of this encounter
--- OUTSIDE RECORDS SUMMARY | 2022-04-24 09:32 | XMS_ITS | Encounter Summary ---
:1985 Author Organization [place] Address [address] [place] [address] Care Team Providers Name Role Phone Edwige Hernandez MD Primary Care Provider Encounter Details Date Type Department Care Team Description 12/25/2004 [facility] [address] [facility] [place] [address] Social History Tobacco Use Types Packs/Day Years Used Date Never Smoker Alcohol Use Standard Drinks/Week Comments No 0 (1 standard drink = 0.6 oz pure alcoho l) Sex Assigned at Date Recorded Not on file documented as of this encounter Plan of Treatment Not on filedocumented as of this encounter Procedures Procedure Name Priority Date/Time Associated Diagnosis Comme nts CT ABDOMEN W Routine 12/25/2004 12:32 AM Resul ts for this CONTRAST CDT procedure are i n the results section. documented in this encounter Results CT SCAN OF ABDOMEN CONTRAST (12/25/2004 12:32 AM CDT) Specimen (Source) Anatomical Collection Method Collection Time Re ceived Time Location / / Volume Laterality 12/25/2004 12:32 AM CDT Impressions RADIOLOGY RESULTS - 12/25/2004 11:[address] ABDOMEN AND PELVIS WITH ORAL AND IV C ONTRAST ?12/25/2004 ?? HISTORY: ??Right lower quadrant pain, ur inary frequency and dysuria, 19-YO. ?? TECHNIQUE: ??Diaphragm to pubic symphysi s, oral and IV contrast. ?? FINDINGS: ??Normal-appearing liver, gall bladder, spleen, pancreas, adrenal glands and kidneys. ??There is n o periaortic adenopathy. ?? PELVIS: ??There is no pelvic adenopathy or free fluid. ??Limited bowel opacification decreases the sensitivity of this study but there is no evidence for acute appendicitis as seen on CT. ?? IMPRESSION: ?? 1. ?No acute-appearing abnorma lity, no CT evidence for acute appendicitis or pyelonephritis. ??Prelim inary report by Dr. Penaloza. ?? [facility] Performing Organization Address City/State/ZIP Code Phon e Number RADIOLOGY RESULTS documented in this encounter Visit Diagnoses Not on filedocumented in this encounter Care Teams Pump Service Supervisor Relationship Specialty Start Date End Date Edwige Hernandez MD PCP - General 09/19/01 08/27/12 documented as of this encounter
[2022-04-24 14:22] LABS: Albumin* 4.6 g/dL (3.3-5.0)
[2022-04-24 14:23] LABS: Chloride* 101 mmol/L (96-114); Sodium* 135 mmol/L (135-149)
[2022-04-24 14:25] LABS: Aspartate Amino Transferase* 30 U/L (12-35); Bilirubin Total* 0.3 mg/dL (0.1-1.5); Carbon Dioxide* 25 mmol/L (20-32); Cholesterol* 270 mg/dL (90-199); Creatinine* 0.8 mg/dL (0.5-1.5); Estimated Glomerular Filt Rate 97 ml/min; Total Protein* 6.9 g/dL (6.0-8.3)
[2022-04-24 14:26] LABS: Alanine Aminotransferase* 37 U/L (4-35); Alkaline Phosphatase* 72 U/L (40-150); Blood Urea Nitrogen* 8 mg/dL (5-24); Calcium* 9.7 mg/dL (8.4-10.6); Glucose* 107 mg/dL (60-115); HDL Cholesterol* 45 mg/dL (>=50); LDL Cholesterol Calculated 178 mg/dL (<100); Triglycerides* 237 mg/dL (40-149)
[2022-04-24 14:36] LABS: Vitamin D 25 Hydroxy* 31 ng/mL (30-80)
[2022-04-24 15:15] LABS: Vitamin B12* 668 pg/mL (243-894)
== END 2022-04-24 09:30 | disposition home or self-care (01) ==
PROVIDERS: PCP Physician Assistant Medical; Visit Provider Physician Assistant Medical
DX: E78.5 Hyperlipidemia, unspecified (principal); R79.89 Other specified abnormal findings of blood chemistry; R53.83 Other fatigue; F41.9 Anxiety disorder, unspecified
CPT/HCPCS: 80053; 80061; 82306; 82607; 84443

== ENCOUNTER 2023-09-02 06:05 | Day surgery (SDC) | payer MEDICAID, SELFPAY ==
[2023-09-02] VITALS (12 sets, daily range): BP systolic 123–144; BP diastolic 78–99; PULSE 56–88; RESP 12–20; TEMP 36.3–36.6; O2SAT 96–100; BMI 26.4
[2023-09-02] MEDS: KETOROLAC 30 MG/ML inj IVP (06:03)
[2023-09-02] MEDS: LACTATED RINGERS 1000 ML 1,000 ML 100 ML IV (06:05)
--- OUTSIDE RECORDS SUMMARY | 2023-09-02 06:07 | XMS_ITS | Clinical Summary ---
Author Name Unknown Organization [place] Address [address] [place] [address] Care Team Providers Care Dewaxer Name Role Phone Andres North MD Primary Care Provide r Allergies Active Allergy Reactions Criticality Noted Date Comments Bactrim 04/04/2009 Penicillins 01/04/2003 Quinolones 01/23/2004 Levaquin - hives Sulfa Antibiotics GI Disturbance 07/05/2006 Medications Medication Sig Dispensed Refills Start Date End Date Status ipratropium - albuterol 0.5 mg/2.5 mg/3 mL (DUONEB) 0.5-2.5 (3) MG/3ML neb solution Take 1 vial (3 mLs) by nebulization every 6 hours as needed for shortness of breath / dyspnea or wheezing 90 mL 0 03/28/2022 Active Immunizations Name Administration Dates Next Due HIB (PRP-T) 07/20/1986 HepB 02/12/2001,03/14/1997 Historical DTP/aP 02/05/1990,07/20/1986,02/26/19 85,1984,1984 MMR 03/14/1997,11/23/1985 OPV, trivalent, live 02/05/1990,07/20/1986,12/03,1984 TD,PF 7+ (Tenivac) 03/14/1997 Family History Medical History Relation Comments Respiratory Brother asthma Diabetes Father type 2 Depression Mother Respiratory Mother asthma Relation Status Comments Brother Father Mother Social History Tobacco Use Types Packs/Day Years Used Date Smoking Tobacco: Former Smokeless Tobacco: Never Alcohol Use Standard Drinks/Week Comments No 0 (1 standard drink = 0.6 oz pur e alcohol) Adolescent Education Answer Date Record ed Getting School Help Needed Not on file 05/19 Sex and Gender Information Value Date Recorded Sex Assigned at Not on file Gender Identity Not on file Sexual Orientation Not on file Last Filed Vital Signs Vital Sign Reading Time Taken Comments Blood Pressure 164/101 03/28/2022 4:30 PM CDT Pulse 105 03/28/2022 4:30 PM CDT Temperature 36.4 ??C (97.6 ??F) 03/28/2022 4:26 PM CD T Respiratory Rate 26 03/28/2022 11:32 AM CDT [...] CONTROL TEST 1985 HEPATITIS C SCREENING 2002 PAP 01/22/2009 01/22/2006, 0610/2002, 01/07/2002 HPV IMMUNIZATION (2 - 3-dose series) 05/29/2009 05/01/2009 YEARLY PREVENTIVE VISIT 05/22/2019 05/22/20 18, 04/08/2017, 01/16/2006, Additional history exists COVID-19 Vaccine ( season) 2023 09/21/2021, 12/27/2020, 12/08/2020 INFLUENZA VACCINE (#1) 2023 , 05/30/2020, 08/06/2019, Additional history exists PHQ-2 (once per calendar year) 2023 DTAP/TDAP/TD IMMUNIZATION (8 - Td or Tdap) 04/20/2024 04/20/2014, 05/01/2009, 03/14/1997, Additional history exists IPV IMMUNIZATION Completed 02/05/1990, , 1984, Additional history exists HIV SCREENING Completed 01/04/2003 HEPATITIS B IMMUNIZATION Completed 009, 08/04/2007, 02/12/2001, Additional history exists MENINGITIS IMMUNIZATION Aged Out No l onger eligible based on patient's age to complete this topic Pneumococcal Vaccine: Pediatrics (0 to 5 Years) and At-Risk Patients (6 to 64 Years) Aged Out No longer eligible based on patient's age to complete this topic RSV MONOCLONAL ANTIBODY Aged Out No l onger eligible based on patient's age to complete this topic Care Teams Dewaxer Relationship Specialty Start Date End Date Andres North MD [address], [id number] [place], [place] [phone] PCP - General Family Practice 08/28/12
--- OUTSIDE RECORDS SUMMARY | 2023-09-02 06:07 | XMS_ITS | Referral Summary ---
Author Name Unknown Organization [place] Address [address] [place] [address] Care Team Providers Care Permanent Mold Supervisor Name Role Phone Andres North MD Primary [...] trivalent, live 02/05/1990,07/20/1986,12/03,1984 TD,PF 7+ (Tenivac) 03/14/1997 Social History Tobacco Use Types Packs/Day Years [...] 01/16/2006 3:00 PM CDT Plan of Treatment Not on file Care Teams Permanent Mold Supervisor Relationship Specialty Start Date End Date Andres North MD [address], [address] [address] PCP - General Family Practice 08/28/12
[2023-09-02] MEDS: SODIUM CHLORIDE 0.9 % (FLUSH) 10 ML SYRINGE IVF (06:29)
[2023-09-02 06:32] LABS: Ur HCG Qualitative* Negative (Negative)
[2023-09-02 06:55] LABS: Hemoglobin* 14.5 gm/dL (12.0-16.0)
--- NOTE | 2023-09-02 07:24 | W.PM.H&PU ---
History & Physical Update History & Physical Update H&P Reviewed and patient assessed: No changes noted
--- NOTE | 2023-09-02 07:25 | P.PCN_ITS ---
Procedure Note Time Seen by Provider: 07:25 Date Seen: 09/02/23 Date of procedure: 09/02/23 Will [facility] bill your pro fee for this procedure?: Yes Procedure: Preoperative diagnosis: 38-year-old with undesired fertility.. Postoperative diagnosis: Same. Procedure: Laparoscopic bilateral salpingectomy Anesthesia: General endotracheal Surgeon: Luz Maria Urena MD Mobile Lab Technician: Sandie Tarn MD EBL: 10 mL Urine output: 150 mL clear urine IVF: 600 ml Specimen: Left and right fallopian tubes tubes to pathology. Findings: On exam under anesthesia: The uterus was anteverted, 8-10 week size, mobile, without masses or nodularity palpable. Adnexa were without mass or fullness bilaterally. The uterus sounded to 10 cm. On laparoscopy: The uterus, bilateral fallopian tubes and ovaries all appeared normal. Liver and gal lbladder appeared normal Procedure: Jacque was taken to the operating room where general anesthetic was found to be adequate. She was placed in the dorsal lithotomy position and an exam under anesthesia was performed with findings stated above. She was then prepped and draped in a normal sterile manner. A Wilkins catheter was then placed. A bivalve speculum was then placed in the vaginal canal to visualize the cervix. The anterior lip of the cervix was grasped with an a long Allis clamp. The cervix was dilated to Hegar 6. Uterus was sounded to 10 cm. A Rami uterine manipulator was then placed. Attention was then turned to performing the laparoscopic portion of the procedure. All incisions were injected with 0. Two 5 % Marcaine prior to incision. A vertical 5 mm infraumbilical, incision, was made and a 5 mm trocar placed under direct visualization with the laparoscope. The abdomen was then insufflated with carbon dioxide gas to a pressure of 15 mm of mercury. To bilateral lower quadrant trocars were then placed under direct visualization. Both were placed approximately 3-4 finger breaths medial to the ischial crests. So both were 5 mm trocars A diagnostic laparoscopy was then performed with findings stated above. The left fallopian tube was grasped with a sliding grasper. The left fallopian tube was removed from the broad ligament using the Halo dissecting forceps starting at the fimbriated end of the tube. Sequential pedicles were then formed to the level of the cornua. The tube was then removed at the cornua and removed from the abdomen through the right port. The right fallopian tube was removed in a similar manner. Excellent hemostasis was noted of all pedicles. The trocars were then removed under direct visualization. The CO2 gas was allowed to escape the infraumbilical port prior to its removal. All incisions were reapproximated using 4-0 Monocryl in a running subcuticular manner. LiquiBand skin adhesive was then applied and adhesive dressings applied over each incision. The uterine manipulator and Wilkins catheter were removed. The patient tolerated this procedure well. Sponge, lap and instrument counts were correct x2 at the end of the procedure and the patient was taken to the recovery area in stable condition.
[2023-09-02] MEDS: BUPIVACAINE 0.5% 30 ML INJECTION (07:55)
--- NOTE | 2023-09-02 08:23 | W.ANESCHARGE ---
Anesthesia Charges Start Date/Time Anesthesia Start Date: 09/02/23 Anesthesia Start Time: 07:20 Stop Date/Time Anesthesia Stop Date: 09/02/23 Anesthesia Stop Time: 08:23
[2023-09-02] MEDS: fentaNYL 100 MCG/2 ML inj 50 MCG IVP ×2 (08:35→08:40)
--- NOTE | 2023-09-02 09:14 | W.ANESCHARGE ---
Anesthesia Charges Start Date/Time Anesthesia Start Date: 09/02/23 Anesthesia Start Time: 07:20 Stop Date/Time Anesthesia Stop Date: 09/02/23 Anesthesia Stop Time: 08:23
== END 2023-09-02 09:42 | disposition home or self-care (01) ==
PROVIDERS: PCP Physician Assistant Medical; Visit Provider Obstetrics & Gynecology
PROC: (CPT 58661; principal; 2023-09-02 07:15)
DX: Z30.2 Encounter for sterilization (principal)
CPT/HCPCS: 58661; 00851; 36415; 81025; 85018; 86850; 86900; 86901; 88302; A4344; J0330; J0665; J1100; J1885; J2250; J2405; J2704; J2710; J3010; J7120